=== PATIENT | female | born 1995 | race Caucasian/White ===

== ENCOUNTER 2018-07-14 18:26 | Emergency (ER) | payer BC, SELFPAY ==
--- NOTE | 2018-07-14 20:10 | ER ---
Nurse's Notes [facility] Name: Nayana Chopra Age: 23 yrs Sex: Female : 1995 Arrival Date: 07/14/2018 Time: 18:30 Bed 24 Private MD: Laurent Olivo R Diagnosis: Influenza due to certain identified influenza viruses Presentation: 07/14 18:32 Presenting complaint: Fever, cough, and sore throat x 2 days. TMAX 100. Transition of hb care: patient was not received from another setting of care. Onset of symptoms was July 13, 2018. Risk Assessment: Do you want to hurt yourself or someone else? Patient reports no desire to harm self or others. Care prior to arrival: None. 18:32 Method Of Arrival: Ambulatory hb 18:32 Acuity: FLAQUITO 4 hb 18:53 Initial Sepsis Screen: Does the patient meet any 2 criteria? No. Patient's initial ca1 sepsis screen is negative. Does the patient have a suspected source of infection? No. Patient's initial sepsis screen is negative. 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 - Social history:: Smoking status: Patient/guardian denies using tobacco. - Ebola Screening: : No symptoms or risks identified at this time. Screenin:40 Abuse screen: Denies threats or abuse. Denies injuries from another. Nutritional ca1 screening: No deficits noted. Tuberculosis screening: No symptoms or risk factors identified. Fall Risk None identified. Assessment: 18:40 General: Appears in no apparent distress. comfortable, Behavior is calm, cooperative, ca1 appropriate for age. Pain: Denies pain. Neuro: Level of Consciousness is awake, alert, obeys commands, Oriented to person, place, time, situation. Cardiovascular: Heart tones S1 S2 present Capillary refill < 3 seconds Patient's skin is warm and dry. Respiratory: Reports shortness of breath cough that is productive, Airway is patent Respiratory effort is even, unlabored, Respiratory pattern is regular, symmetrical, Breath sounds are clear bilaterally. Onset: The symptoms/episode began/occurred yesterday. GI: Abdomen is round non-distended, Bowel sounds present X 4 quads. Abd is soft and non tender X 4 quads. : No deficits noted. No signs and/or symptoms were reported regarding the genitourinary system. EENT: Throat is pink. Derm: Skin is intact, is healthy with good turgor, Skin is pink, warm \T\ dry. Musculoskeletal: Circulation, motion, and sensation intact. Capillary refill < 3 seconds. 19:53 Reassessment: Patient appears in no apparent distress at this time. Patient and/or ca1 family updated on plan of care and expected duration. Pain level reassessed. Patient is alert, oriented x 3, equal unlabored respirations, skin warm/dry/pink. Vital Signs: 18:33 BP 124 / 81; Pulse 104; Resp 20; Temp 99; Pulse Ox 97% on R/A; Pain 8/10; hb 19:53 BP 106 / 79; Pulse 103; Resp 19; Pulse Ox 97% on R/A; ca1 ED Course: 18:30 Patient arrived in ED. ds1 18:30 Laurent Olivo MD is Private Physician. ds1 18:30 Neli Negron FNP-C is [facility]. kb 18:30 Sanchez Collins MD is Attending Physician. kb 18:33 Triage completed. hb 18:34 Arm band placed on left wrist. hb 18:40 Patient has correct armband on for positive identification. Pulse ox on. NIBP on. Warm ca1 blanket given. 18:47 Zenia Lopez, HEMA is Primary Nurse. ca1 18:55 Flu Sent. rv 18:55 Strep Sent. rv 20:16 No provider procedures requiring assistance completed. Patient did not have IV access ca1 during this emergency room visit. Administered Medications: 20:15 Drug: Tamiflu 75 mg Route: PO; ca1 20:16 Follow up: Response: Medication administered at discharge. ca1 Outcome: 20:09 Discharge ordered by . kb 20:16 Discharged to home ambulatory. ca1 20:16 Condition: stable 20:16 Discharge instructions given to patient, Instructed on discharge instructions, follow up and referral plans. medication usage, Demonstrated understanding of instructions, follow-up care, medications, Prescriptions given X 1. 20:17 Patient left the ED. ca1 Signatures: Neli Negron, MOSHE-Brynn POWER PLANT INSTALLER-Cinda Jimenez ds1 Essence Barrow, RN RN hb Rajat Arechiga, RN RN rv Zenia Lopez RN RN ca1
--- NOTE | 2018-07-14 20:10 | EDPHYS ---
Physician Documentation [facility] Name: Nayana Chopra Age: 23 yrs Sex: Female : 1995 Arrival Date: 07/14/2018 Time: 18:30 Bed 24 Private MD: Laurent Olvio R ED Physician Sanchez Collins HPI: 07/14 20:05 This 23 yrs old Female presents to ER via Ambulatory with complaints of kb Fever, Sore Throat, Cough. 20:06 The patient or guardian reports cough, that is intermittent, described as moderate, kb with no sputum, flu symptoms, low-grade fever, myalgias. Onset: The symptoms/episode began/occurred 2 day(s) ago. Severity of symptoms: At their worst the symptoms were mild, moderate, in the emergency department the symptoms are unchanged. Modifying factors: The symptoms are alleviated by nothing, the symptoms are aggravated by nothing. Associated signs and symptoms: Pertinent positives: fever, rhinorrhea, sore throat, Pertinent negatives: chest pain, diarrhea, ear ache, nausea, vomiting. The patient has not experienced similar symptoms in the past. The patient has not recently seen a physician. 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 - Social history:: Smoking status: Patient/guardian denies using tobacco. - Ebola Screening: : No symptoms or risks identified at this time. ROS: 20:05 Neck: Negative for injury, pain, and swelling, Cardiovascular: Negative for chest pain, kb palpitations, and edema, Abdomen/GI: Negative for abdominal pain, nausea, vomiting, diarrhea, and constipation, Back: Negative for injury and pain, : Negative for injury, bleeding, discharge, and swelling, MS/Extremity: Negative for injury and deformity, Skin: Negative for injury, rash, and discoloration, Neuro: Negative for headache, weakness, numbness, tingling, and seizure. 20:05 Constitutional: Positive for body aches, chills, fatigue, fever, malaise, Negative for poor PO intake, weight loss. 20:05 ENT: Positive for sore throat. 20:05 Respiratory: Positive for cough, Negative for dyspnea on exertion, hemoptysis, orthopnea, pleurisy, shortness of breath, sputum production, wheezing. Exam: 20:06 Constitutional: This is a well developed, well nourished patient who is awake, alert, kb and in no acute distress. Head/Face: Normocephalic, atraumatic. ENT: Nares patent. No nasal discharge, no septal abnormalities noted. Tympanic membranes are normal and external auditory canals are clear. Oropharynx with no redness, swelling, or masses, exudates, or evidence of obstruction, uvula midline. Mucous membranes moist. Neck: Trachea midline, no thyromegaly or masses palpated, and no cervical lymphadenopathy. Supple, full range of motion without nuchal rigidity, or vertebral point tenderness. No Meningismus. Chest/axilla: Normal chest wall appearance and motion. Nontender with no deformity. No lesions are appreciated. Cardiovascular: Regular rate and rhythm with a normal S1 and S2. No gallops, murmurs, or rubs. Normal PMI, no JVD. No pulse deficits. Respiratory: Lungs have equal breath sounds bilaterally, clear to auscultation and percussion. No rales, rhonchi or wheezes noted. No increased work of breathing, no retractions or nasal flaring. Abdomen/GI: Soft, non-tender, with normal bowel sounds. No distension or tympany. No guarding or rebound. No evidence of tenderness throughout. Skin: Warm, dry with normal turgor. Normal color with no rashes, no lesions, and no evidence of cellulitis. MS/ Extremity: Pulses equal, no cyanosis. Neurovascular intact. Full, normal range of motion. Neuro: Awake and alert, GCS 15, oriented to person, place, time, and situation. Cranial nerves II-XII grossly intact. Motor strength 5/5 in all extremities. Sensory grossly intact. Cerebellar exam normal. Normal gait. Vital Signs: 18:33 BP 124 / 81; Pulse 104; Resp 20; Temp 99; Pulse Ox 97% on R/A; Pain 8/10; hb 19:53 BP 106 / 79; Pulse 103; Resp 19; Pulse Ox 97% on R/A; ca1 MDM: 18:35 Patient medically screened. kb 20:06 Data reviewed: vital signs, nurses notes. Data interpreted: Pulse oximetry: on room air kb is 97 %. Interpretation: normal. Counseling: I had a detailed discussion with the patient and/or guardian regarding: the historical points, exam findings, and any diagnostic results supporting the discharge/admit diagnosis, lab results, the need for outpatient follow up, a family practitioner, to return to the emergency department if symptoms worsen or persist or if there are any questions or concerns that arise at home. 07/14 18:35 Order name: Strep; Complete Time: 20:04 kb 07/14 18:35 Order name: Flu; Complete Time: 20:04 kb 07/14 20:04 Order name: Throat Culture EDMS Administered Medications: 20:15 Drug: Tamiflu 75 mg Route: PO; ca1 20:16 Follow up: Response: Medication administered at discharge. ca1 Disposition: 07/15 07:24 Co-signature as Attending Physician, Sanchez Collins MD I agree with the assessment and kdr plan of care. Disposition: 07/14/18 20:09 Discharged to Home. Impression: Influenza due to certain identified influenza viruses. - Condition is Stable. - Discharge Instructions: Influenza, Adult, [id number]. - Prescriptions for Tamiflu 75 mg Oral Capsule - take 1 capsule by ORAL route every 12 hours for 5 days; 10 capsule. - Medication Reconciliation Form, Thank You Letter, Antibiotic Education, Prescription Opioid Use, Work release form form. - Follow up: Emergency Department; When: As needed; Reason: Worsening of condition. Follow up: Private Physician; When: 2 - 3 days; Reason: Recheck today's complaints, Continuance of care, Re-evaluation by your physician. Signatures: Dispatcher [employer] EDMS Neli Negron, LIDIAC Sanchez Best MD MD [facility] Essence Barrow RN RN Zenia Lopez RN RN ca1 Corrections: (The following items were deleted from the chart) 07/14 20:17 20:09 07/14/2018 20:09 Discharged to Home. Impression: Influenza due to certain ca1 identified influenza viruses. Condition is Stable. Forms are Medication Reconciliation Form, Thank You Letter, Antibiotic Education, Prescription Opioid Use. Follow up: Emergency Department; When: As needed; Reason: Worsening of condition. Follow up: Private Physician; When: 2 - 3 days; Reason: Recheck today's complaints, Continuance of care, Re-evaluation by your physician. kb
[2018-07-14] MEDS ORDERED: OSELTAMIVIR 75 MG CAP ONE (20:24)
[2018-07-14 20:43] VITALS: TEMP 99; O2SAT 97
[2018-07-14 20:44] VITALS: BP 106/79
== END 2018-07-14 20:17 | disposition home or self-care (01) ==
LOC: ER 18:26
DX: J10.1 Influenza due to other identified influenza virus with other respiratory manifestations (principal)
CPT/HCPCS: 87070; 87081; 87804; 99284

== ENCOUNTER 2019-04-18 15:23 | Emergency (ER) | payer BC ==
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
[2019-04-18 17:05] VITALS: BP 144/83; TEMP 98.2; O2SAT 99
== END 2019-04-18 16:38 | disposition home or self-care (01) ==
LOC: ER 15:23
DX: M62.830 Muscle spasm of back (principal); V49.50XA Passenger injured in collision with unspecified motor vehicles in traffic accident, initial encounter
CPT/HCPCS: 99284

== ENCOUNTER 2019-07-13 04:13 | Emergency (ER) | payer BC ==
[2019-07-13] MEDS ORDERED: AMOX/K CLAV 875 MG TAB ONE (04:56)
--- NOTE | 2019-07-13 05:24 | EDPHYS ---
Physician Documentation [facility] Name: Nayana Chopra Age: 24 yrs Sex: Female : 1995 Arrival Date: 07/13/2019 Time: 04:14 Bed 5 Private MD: ED Physician Julien Sibley HPI: 07/12 04:48 This 24 yrs old Female presents to ER via Ambulatory with complaints of cee Cough, Sore Throat, 12 Wks Preg. 04:48 The patient or guardian reports cough, that is intermittent. Onset: The cee symptoms/episode began/occurred 3 day(s) ago. Severity of symptoms: At their worst the symptoms were mild, in the emergency department the symptoms are unchanged. Modifying factors: The symptoms are alleviated by nothing, the symptoms are aggravated by nothing. Associated signs and symptoms: The patient has no apparent associated signs or symptoms. 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 - Social history:: Smoking status: Patient denies any tobacco usage or history of. - Family history:: not pertinent. ROS: 04:48 Constitutional: Negative for fever, chills, and weight loss, Eyes: Negative for injury, cee pain, redness, and discharge, ENT: Negative for injury, pain, and discharge, Neck: Negative for injury, pain, and swelling, Cardiovascular: Negative for chest pain, palpitations, and edema, Abdomen/GI: Negative for abdominal pain, nausea, vomiting, diarrhea, and constipation, Back: Negative for injury and pain, : Negative for injury, bleeding, discharge, and swelling, MS/Extremity: Negative for injury and deformity, Skin: Negative for injury, rash, and discoloration, Neuro: Negative for headache, weakness, numbness, tingling, and seizure, Psych: Negative for depression, anxiety, suicide ideation, homicidal ideation, and hallucinations, Allergy/Immunology: Negative for hives, rash, and allergies, Endocrine: Negative for neck swelling, polydipsia, polyuria, polyphagia, and marked weight changes, Hematologic/Lymphatic: Negative for swollen nodes, abnormal bleeding, and unusual bruising. 04:48 Respiratory: Positive for cough, with green sputum. Exam: 04:48 Constitutional: This is a well developed, well nourished patient who is awake, alert, cee and in no acute distress. Head/Face: Normocephalic, atraumatic. Eyes: Pupils equal round and reactive to light, extra-ocular motions intact. Lids and lashes normal. Conjunctiva and sclera are non-icteric and not injected. Cornea within normal limits. Periorbital areas with no swelling, redness, or edema. ENT: Nares patent. No nasal discharge, no septal abnormalities noted. Tympanic membranes are normal and external auditory canals are clear. Oropharynx with no redness, swelling, or masses, exudates, or evidence of obstruction, uvula midline. Mucous membranes moist. Neck: Trachea midline, no thyromegaly or masses palpated, and no cervical lymphadenopathy. Supple, full range of motion without nuchal rigidity, or vertebral point tenderness. No Meningismus. Chest/axilla: Normal chest wall appearance and motion. Nontender with no deformity. No lesions are appreciated. Cardiovascular: Regular rate and rhythm with a normal S1 and S2. No gallops, murmurs, or rubs. Normal PMI, no JVD. No pulse deficits. Abdomen/GI: Soft, non-tender, with normal bowel sounds. No distension or tympany. No guarding or rebound. No evidence of tenderness throughout. Back: No spinal tenderness. No costovertebral tenderness. Full range of motion. Skin: Warm, dry with normal turgor. Normal color with no rashes, no lesions, and no evidence of cellulitis. MS/ Extremity: Pulses equal, no cyanosis. Neurovascular intact. Full, normal range of motion. Neuro: Awake and alert, GCS 15, oriented to person, place, time, and situation. Cranial nerves II-XII grossly intact. Motor strength 5/5 in all extremities. Sensory grossly intact. Cerebellar exam normal. Normal gait. Psych: Awake, alert, with orientation to person, place and time. Behavior, mood, and affect are within normal limits. 04:48 Respiratory: mild respiratory distress is noted, Respirations: no acute changes, Breath sounds: rhonchi, that are mild. Vital Signs: 04:35 BP 116 / 90; Pulse 85; Resp 18; Temp 98.9; Pulse Ox 100% ; Weight 102.97 kg; Height 5 rv ft. 10 in. (177.80 cm); 05:38 BP 110 / 77; Pulse 86; Resp 17; Temp 99; Pulse Ox 100% on R/A; rv 04:35 Body Mass Index 32.57 (102.97 kg, 177.80 cm) rv MDM: 04:19 Patient medically screened. [facility] 04:48 Data reviewed: vital signs, nurses notes, lab test result(s). [facility] 07/12 04:35 Order name: Strep rv 07/12 04:35 Order name: Group A Streptococcus Rapid Sc; Complete Time: 05:27 EDMS 07/12 04:47 Order name: Flu; Complete Time: 05:27 [facility] 07/12 05:33 Order name: Throat Culture EDMS Administered Medications: 05:37 Drug: Augmentin 875 mg Route: PO; rv 05:38 Follow up: Response: Medication administered at discharge. rv Disposition: 07/13/19 05:22 Discharged to Home. Impression: Bronchitis, not specified as acute or chronic, Acute pharyngitis, related conditions, unspecified, first trimester. - Condition is Stable. - Discharge Instructions: Acute Bronchitis, Adult, Pharyngitis, Upper Respiratory Infection, Adult, First Trimester of , Wbiv-lv-Zgbl, Pharyngitis, Idgv-vg-Vcoa, First Trimester of , Cough, Adult, Cjyj-wa-Qbcc, Cough, Adult, Sore Throat, Xofo-rj-Sbth. - Prescriptions for Augmentin 875- 125 mg Oral Tablet - take 1 tablet by ORAL route every 12 hours for 10 days; 20 tablet. Benadryl 25 mg Oral Capsule - take 1 capsule by ORAL route every 6 hours As needed; 30 tablet. Vitamin 27- 0.8 mg Oral Tablet - take 1 tablet by ORAL route once daily; 30 tablet. - Medication Reconciliation Form, Thank You Letter, Antibiotic Education, Prescription Opioid Use form. - Follow up: Private Physician; When: 2 - 3 days; Reason: Recheck today's complaints, Re-evaluation by your physician. - Problem is new. - Symptoms have improved. Signatures: Dispatcher [employer] EDJulien Diallo MD MD cha Vicente, Ronaldo RN RN rv Corrections: (The following items were deleted from the chart) 05:38 04:47 FHT's ordered. cee rv 05:39 05:22 07/13/2019 05:22 Discharged to Home. Impression: Bronchitis, not specified as rv acute or chronic; Acute pharyngitis; related conditions, unspecified, first trimester. Condition is Stable. Discharge Instructions: Acute Bronchitis, Adult, Pharyngitis, Upper Respiratory Infection, Adult, First Trimester of , Duvo-bd-Lcyw, Pharyngitis, Wtwt-am-Ypvh, First Trimester of , Cough, Adult, Antj-eo-Hydk, Cough, Adult, Sore Throat, Yowt-dp-Tizp. Prescriptions for Augmentin 875-125 mg Oral Tablet - take 1 tablet by ORAL route every 12 hours for 10 days; 20 tablet, Benadryl 25 mg Oral Capsule - take 1 capsule by ORAL route every 6 hours As needed; 30 tablet, Vitamin 27-0.8 mg Oral Tablet - take 1 tablet by ORAL route once daily; 30 tablet. and Forms are Medication Reconciliation Form, Thank You Letter, Antibiotic Education, Prescription Opioid Use. Follow up: Private Physician; When: 2 - 3 days; Reason: Recheck today's complaints, Re-evaluation by your physician. Problem is new. Symptoms have improved. [facility]
--- NOTE | 2019-07-13 05:24 | ER ---
Nurse's Notes [facility] Name: Nayana Chopra Age: 24 yrs Sex: Female : 1995 Arrival Date: 07/13/2019 Time: 04:14 Bed 5 Private MD: Diagnosis: Bronchitis, not specified as acute or chronic;Acute pharyngitis; related conditions, unspecified, first trimester Presentation: 07/12 04:35 Chief complaint: Patient states: MY DAUGHTER HAD SORE THROAT LAST WEEK AND TEA BLENDER rv GAVE HER ANTIBIOTICS AND STEROIDS. COUGH AND SORE THROAT STARTED 3 DAYS AGO. DENIES FEVER. Coronavirus screen: Patient reports a subjective fever or greater than 100.4F, or cough, or shortness of breath, or difficulty breathing. Surgical mask placed on patient. Patient moved to private room, placed in contact and droplet isolation with eye protection until further assessment. Patient denies travel on a cruise ship or to a country the [facility] currently lists as an affected area. Patient denies contact with known and/or suspected case of COVID-19. Ebola Screen: No symptoms or risks identified at this time. Initial Sepsis Screen: Does the patient meet any 2 criteria? No. Patient's initial sepsis screen is negative. Does the patient have a suspected source of infection? No. Patient's initial sepsis screen is negative. Risk Assessment: Do you want to hurt yourself or someone else? Patient reports no desire to harm self or others. Onset of symptoms was July 11, 2019 at 08:00. 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 - Social history:: Smoking status: Patient denies any tobacco usage or history of. - Family history:: not pertinent. Screenin:39 Abuse screen: Denies threats or abuse. Denies injuries from another. Nutritional rv screening: No deficits noted. Tuberculosis screening: No symptoms or risk factors identified. Fall Risk None identified. Assessment: 04:38 General: Appears in no apparent distress. comfortable, Behavior is calm, cooperative. rv Pain: Denies pain. Neuro: Level of Consciousness is awake, alert, obeys commands, Oriented to person, place, time, situation. Cardiovascular: Patient's skin is warm and dry. Respiratory: Airway is patent Respiratory effort is even, unlabored, Breath sounds are clear bilaterally. EENT: Throat is reddened. Derm: Skin is healthy with good turgor. Vital Signs: 04:35 BP 116 / 90; Pulse 85; Resp 18; Temp 98.9; Pulse Ox 100% ; Weight 102.97 kg; Height 5 rv ft. 10 in. (177.80 cm); 05:38 BP 110 / 77; Pulse 86; Resp 17; Temp 99; Pulse Ox 100% on R/A; rv 04:35 Body Mass Index 32.57 (102.97 kg, 177.80 cm) rv ED Course: 04:14 Patient arrived in ED. ds1 04:18 Rajat Arechiga, RN is Primary Nurse. rv 04:19 Julien Sibley MD is Attending Physician. cee 04:38 Triage completed. rv 04:38 Arm band placed on Patient placed in the treatment room, on a stretcher, Patient rv notified of wait time. 04:39 Patient has correct armband on for positive identification. Bed in low position. Call rv light in reach. Pulse ox on. NIBP on. 04:39 No provider procedures requiring assistance completed. Patient did not have IV access rv during this emergency room visit. 04:49 Flu and/or RSV swab sent to lab. Strep swab sent to lab. rr5 Administered Medications: 05:37 Drug: Augmentin 875 mg Route: PO; rv 05:38 Follow up: Response: Medication administered at discharge. rv Outcome: 05:22 Discharge ordered by . cee 05:39 Discharged to home ambulatory. rv 05:39 Condition: good 05:39 Discharge instructions given to patient, Instructed on discharge instructions, follow up and referral plans. medication usage, Demonstrated understanding of instructions, follow-up care, medications, Prescriptions given X 3. 05:39 Patient left the ED. rv Signatures: Julien Sibley MD MD cha Sanford, Demi ds1 Rajat Arechiga, HEMA RN rv Jin Kitchen RN RN rr5
[2019-07-13 10:00] VITALS: O2SAT 100
[2019-07-13 10:02] VITALS: BP 110/77; TEMP 99
== END 2019-07-13 05:39 | disposition home or self-care (01) ==
LOC: ER 04:13
DX: O99.511 Diseases of the respiratory system complicating pregnancy, first trimester (principal); J40 Bronchitis, not specified as acute or chronic; Z3A.12 12 weeks gestation of pregnancy
CPT/HCPCS: 87070; 87081; 87804; 99284

== ENCOUNTER 2019-08-14 12:52 | Emergency (ER) | payer BC, OTHER ==
[2019-08-14 13:26] LABS: Absolute Lymphocytes (CBC) 2.2 K/uL (0.7-4.9); Basophils % 0.3 % (0-1.3); Hematocrit 36.4 % (36.0-45.0); Lymphocytes % 17.6 % (15.3-44.8); MPV 7.6 fL (7.6-11.3); RBC Red Blood Cell Count 3.98 M/uL (3.86-4.86)
[2019-08-14 14:00] LABS: BUN Blood Urea Nitrogen 5 mg/dL (7-18); Bicarbonate 21 mmol/L (21-32); Glucose Level 93 mg/dL (74-106); HCG, Quantitative 11024 mIU/mL (1-3); Potassium 3.4 mmol/L (3.5-5.1); Sodium Level 134 mmol/L (136-145)
--- NOTE | 2019-08-14 14:21 | RAD REPORT ---
EXAM DESCRIPTION: US - OB Limited - 08/14/2019 1:56 pm CLINICAL HISTORY: syncope/spotting Fall, trauma, spotting COMPARISON: OBSTETRICAL COMPLETE dated 02/19/2015 FINDINGS: A limited examination was requested from the emergency room. A single variable presenting gestation is identified. Heart rate normal. The placenta is anterior in location without placental abruption or previa. Subjectively, amniotic fl uid volume is normal. IMPRESSION: No acute abnormality detected on limited examination.
[2019-08-14] MEDS ORDERED: NA CHLORIDE 0.9% 1,000 ML ONE (14:47)
--- NOTE | 2019-08-14 16:01 | EDPHYS ---
Physician Documentation [facility] Name: Nayana Cohpra Age: 24 yrs Sex: Female : 1995 Arrival Date: 08/14/2019 Time: 12:58 Bed 5 Private MD: ED Physician Piyush Saldana HPI: 08/13 13:16 This 24 yrs old Female presents to ER via Ambulatory with complaints of Near snw Syncope. 13:16 The patient has experienced syncope, collapsed. Onset: The symptoms/episode snw began/occurred suddenly, and became persistent. Duration: The patient has had multiple episodes, that last an unknown period of time. Context: the episode(s) was witnessed, by family, occurred at home, occurred while the patient was getting up from bed. Associated injury: The patient did not suffer any apparent associated injury. Current symptoms: feels "heavy". The patient has been recently seen by a physician: with similar presenting complaints, lab tests were done, no results at this time. BUILDING ADMIN: 13:05 2, Full Term 1, Premature 0, 0, Living 1 sv Historical: - Allergies: 13:05 No Known Drug Allergies; sv - Home Meds: 13:09 None [Active]; jl7 - PMHx: 13:05 None; sv - PSHx: 13:05 None; sv - Immunization history:: Adult Immunizations. - Social history:: Smoking status: . ROS: 13:15 Constitutional: Negative for fever, chills, and weight loss, Eyes: Negative for injury, snw pain, redness, and discharge, ENT: Negative for injury, pain, and discharge, Neck: Negative for injury, pain, and swelling, Cardiovascular: Negative for chest pain, palpitations, and edema, Respiratory: Negative for shortness of breath, cough, wheezing, and pleuritic chest pain, Abdomen/GI: Negative for abdominal pain, nausea, vomiting, diarrhea, and constipation, Back: Negative for injury and pain, : Negative for injury, discharge, and swelling, spotting throughout 16 week MS/Extremity: Negative for injury and deformity, Skin: Negative for injury, rash, and discoloration, Psych: Negative for depression, anxiety, suicide ideation, homicidal ideation, and hallucinations. 13:15 Neuro: Positive for syncope. Exam: 13:14 Constitutional: This is a well developed, well nourished patient who is awake, alert, snw and in no acute distress. Head/Face: Normocephalic, atraumatic. 13:14 ENT: Nares patent. No nasal discharge, no septal abnormalities noted. Tympanic membranes are normal and external auditory canals are clear. Oropharynx with no redness, swelling, or masses, exudates, or evidence of obstruction, uvula midline. Mucous membranes moist. Neck: Trachea midline, no thyromegaly or masses palpated, and no cervical lymphadenopathy. Supple, full range of motion without nuchal rigidity, or vertebral point tenderness. No Meningismus. Chest/axilla: Normal chest wall appearance and motion. Nontender with no deformity. No lesions are appreciated. Cardiovascular: Regular rate and rhythm with a normal S1 and S2. No gallops, murmurs, or rubs. Normal PMI, no JVD. No pulse deficits. Respiratory: Lungs have equal breath sounds bilaterally, clear to auscultation and percussion. No rales, rhonchi or wheezes noted. No increased work of breathing, no retractions or nasal flaring. Abdomen/GI: Soft, non-tender, with normal bowel sounds. No distension or tympany. No guarding or rebound. No evidence of tenderness throughout. Back: No spinal tenderness. No costovertebral tenderness. Full range of motion. MS/ Extremity: Pulses equal, no cyanosis. Neurovascular intact. Full, normal range of motion. Neuro: Awake and alert, GCS 15, oriented to person, place, time, and situation. Cranial nerves II-XII grossly intact. Motor strength 5/5 in all extremities. Sensory grossly intact. Cerebellar exam normal. Normal gait. Psych: Awake, alert, with orientation to person, place and time. Behavior, mood, and affect are within normal limits. 13:14 Eyes: Periorbital structures: appear normal, Pupils: no acute changes, Conjunctiva: pale, bilaterally. 13:14 Skin: Appearance: Color: pale, Moisture: normal moisture, petechiae, not noted. Vital Signs: 13:06 BP 123 / 90; Pulse 74; Resp 18; Temp 97.5; Pulse Ox 97% ; sv 14:36 BP 109 / 69; Pulse 84; Resp 16; Pulse Ox 98% ; sv 15:51 BP 112 / 68 LA Supine (auto/); Pulse 70; sv 15:53 BP 119 / 81 Sitting (auto/); Pulse 89; sv 15:55 BP 122 / 75 LA Standing (auto/); Pulse 74; sv MDM: 13:04 Patient medically screened. snw 16:07 Data reviewed: vital signs, nurses notes. Data interpreted: Pulse oximetry: on room air snw is 98 %. Interpretation: acceptable. Counseling: I had a detailed discussion with the patient and/or guardian regarding: the historical points, exam findings, and any diagnostic results supporting the discharge/admit diagnosis, lab results, radiology results, the need for outpatient follow up, to return to the emergency department if symptoms worsen or persist or if there are any questions or concerns that arise at home. Response to treatment: the patient's symptoms have mildly improved after treatment, the patient's symptoms have markedly improved after treatment. Special discussion: Based on the history and exam findings, there is no indication for further emergent testing or inpatient evaluation. I discussed with the patient/guardian the need to see the OB Gyne specialist for further evaluation of the symptoms. 08/13 13:04 Order name: Quantitative Hcg; Complete Time: 14:02 snw 08/13 13:04 Order name: Basic Metabolic Panel; Complete Time: 14:02 snw 08/13 13:04 Order name: CBC with Diff; Complete Time: 13:32 snw 08/13 13:15 Order name: Glucose, Ancillary Testing; Complete Time: 13:23 EDMS 08/13 13:04 Order name: IV Saline Lock; Complete Time: 13:21 snw 08/13 13:04 Order name: Labs collected and sent; Complete Time: 13:21 snw 08/13 13:04 Order name: NPO; Complete Time: 13:21 snw 08/13 13:04 Order name: FSBS; Complete Time: 13:08 snw 08/13 13:07 Order name: US OB Limited; Complete Time: 14:25 snw 08/13 15:58 Order name: Diet Regular; Complete Time: 15:58 em1 08/13 14:26 Order name: Misc. Order: please change IVF rate to bolus; Complete Time: 14:43 snw 08/13 15:48 Order name: Orthostatics; Complete Time: 15:58 snw Administered Medications: 14:43 Drug: NS 0.9% 1000 ml Route: IV; Rate: 1000 bolus; Site: right antecubital; aa5 15:45 Follow up: Response: No adverse reaction; IV Status: Completed infusion; IV Intake: sv 1000ml Disposition: 18:25 Co-signature as Attending Physician, Piyush Saldana MD. rn Disposition: 08/14/19 16:00 Discharged to Home. Impression: 16 weeks gestation of , Syncope and collapse, Volume depletion. - Condition is Stable. - Discharge Instructions: Dehydration, Adult, Near-Syncope, and Anemia, Second Trimester of , Xnso-is-Chps, Rehydration, Adult. - Medication Reconciliation Form, Thank You Letter, Antibiotic Education, Prescription Opioid Use form. - Follow up: Emergency Department; When: As needed; Reason: Worsening of condition. Follow up: Private Physician; When: 1 - 2 days; Reason: Recheck today's complaints, Continuance of care, Re-evaluation by your physician. - Notes: Please change positions slowly. Signatures: Dispatcher [employer] EDMD Myriam Quiroz RN RN sv Therrien, Shelly, BOAT WORKER-C BOAT WORKER-Csnw Piyush Saldana MD MD rn Calderon, Audri, RN RN aa5 Alexei Huang RN RN jl7 Corrections: (The following items were deleted from the chart) 16:33 13:04 ABO/RH TYPING+BB.LAB.BRZ ordered. EDMD EDMS 16:33 13:04 TYPE AND SCREEN+BB.LAB.BRZ ordered. [facility] EDMD 16:35 16:00 08/14/2019 16:00 Discharged to Home. Impression: 16 weeks gestation of ; sv Syncope and collapse; Volume depletion. Condition is Stable. Forms are Medication Reconciliation Form, Thank You Letter, Antibiotic Education, Prescription Opioid Use. Follow up: Emergency Department; When: As needed; Reason: Worsening of condition. Follow up: Private Physician; When: 1 - 2 days; Reason: Recheck today's complaints, Continuance of care, Re-evaluation by your physician. snw
--- NOTE | 2019-08-14 16:01 | ER ---
Nurse's Notes [facility] Name: Nayana Chopra Age: 24 yrs Sex: Female : 1995 Arrival Date: 08/14/2019 Time: 12:58 Bed 5 Private MD: Diagnosis: 16 weeks gestation of ;Syncope and collapse;Volume depletion Presentation: 08/13 13:03 Chief complaint: Patient states: Woke up at 1100 this morning and was dizzy and jl7 nauseous, went to the restroom to vomit. Dizziness increased and pt reports "I fell back onto the rug from my knees and my head hit the rug." Pt denies LOC, reports "seeing stars", reports "My body feels heavy.". Initial Sepsis Screen: Does the patient meet any 2 criteria? No. Patient's initial sepsis screen is negative. Does the patient have a suspected source of infection? No. Patient's initial sepsis screen is negative. Risk Assessment: Do you want to hurt yourself or someone else? Patient reports no desire to harm self or others. Onset of symptoms was August 14, 2019 at 11:00. Care prior to arrival: None. 13:03 Method Of Arrival: Ambulatory jl7 13:03 Acuity: FLAQUITO 2 jl7 13:03 Note Pt is about 5 months . sv 13:05 Coronavirus screen: Proceed with normal triage. Patient denies a cough. Patient denies sv shortness of breath or difficulty breathing. Patient denies measured and/or subjective temperature greater than 100.4F prior to today's visit. Patient denies travel on a cruise ship or to a country the [facility] currently lists as an affected area. Patient denies contact with known and/or suspected case of COVID-19. Ebola Screen: No symptoms or risks identified at this time. Onset of symptoms was August 13, 2019. Triage Assessment: 13:03 General: Appears in no apparent distress. uncomfortable, Behavior is cooperative, jl7 appropriate for age, anxious, drowsy. Pain: Denies pain. Neuro: Level of Consciousness is awake, alert, obeys commands, Oriented to person, place, time, situation, Weakness Speech is normal, Facial symmetry appears normal, Pupils are PERRLA, Reports dizziness, weakness. Cardiovascular: Patient's skin is warm and dry. Respiratory: Airway is patent Respiratory effort is even, unlabored, Respiratory pattern is regular, symmetrical. GI: Reports nausea, vomiting, Patient currently denies diarrhea. Derm: Skin is pink, warm \\T\\ dry. [employer]: 13:05 2, Full Term 1, Premature 0, 0, Living 1 sv Historical: - Allergies: 13:05 No Known Drug Allergies; sv - Home Meds: 13:09 None [Active]; jl7 - PMHx: 13:05 None; sv - PSHx: 13:05 None; sv - Immunization history:: Adult Immunizations. - Social history:: Smoking status: . Screenin:04 Abuse screen: Denies threats or abuse. Denies injuries from another. Nutritional sv screening: No deficits noted. Tuberculosis screening: No symptoms or risk factors identified. Fall Risk None identified. Assessment: 14:00 Reassessment: Patient appears in no apparent distress at this time. No changes from sv previously documented assessment. Patient and/or family updated on plan of care and expected duration. Pain level reassessed. Patient is alert, oriented x 3, equal unlabored respirations, skin warm/dry/pink. 14:43 Reassessment: Patient appears in no apparent distress at this time. No changes from sv previously documented assessment. Patient and/or family updated on plan of care and expected duration. Pain level reassessed. Patient is alert, oriented x 3, equal unlabored respirations, skin warm/dry/pink. 16:06 Reassessment: Patient appears in no apparent distress at this time. Patient and/or sv family updated on plan of care and expected duration. Pain level reassessed. Patient is alert, oriented x 3, equal unlabored respirations, skin warm/dry/pink. Reports dizziness has improved after the IVF given. Patient states feeling better. Patient states symptoms have improved. 16:34 Reassessment: Patient appears in no apparent distress at this time. Patient and/or sv family updated on plan of care and expected duration. Pain level reassessed. Patient is alert, oriented x 3, equal unlabored respirations, skin warm/dry/pink. Patient states feeling better. Patient states symptoms have improved. Vital Signs: 13:06 BP 123 / 90; Pulse 74; Resp 18; Temp 97.5; Pulse Ox 97% ; sv 14:36 BP 109 / 69; Pulse 84; Resp 16; Pulse Ox 98% ; sv 15:51 BP 112 / 68 LA Supine (auto/); Pulse 70; sv 15:53 BP 119 / 81 Sitting (auto/); Pulse 89; sv 15:55 BP 122 / 75 LA Standing (auto/); Pulse 74; sv Vitals: 13:03 Heart Tones 138. sv ED Course: 12:58 Patient arrived in ED. em1 13:01 Malu Luna F[facility]-C [facility]. snw 13:01 Piyush Saldana MD is Attending Physician. snw 13:03 Myriam Quiroz, HEMA is Primary Nurse. sv 13:04 Patient has correct armband on for positive identification. Bed in low position. Call sv light in reach. Side rails up X2. Pulse ox on. NIBP on. Door closed. Head of bed elevated. 13:06 Arm band placed on. sv 13:07 Triage completed. jl7 13:15 Inserted saline lock: 20 gauge in right antecubital area, using aseptic technique. sv Blood collected. Flushed right antecubital with 2 ml normal saline. 13:49 US OB Limited In Process Unspecified. EDMS 14:36 Awaiting radiology results. sv 15:08 Awaiting disposition, Awaiting re-evaluation by ER provider. sv 16:34 No provider procedures requiring assistance completed. IV discontinued, intact, sv bleeding controlled, No redness/swelling at site. Pressure dressing applied. Administered Medications: 14:43 Drug: NS 0.9% 1000 ml Route: IV; Rate: 1000 bolus; Site: right antecubital; aa5 15:45 Follow up: Response: No adverse reaction; IV Status: Completed infusion; IV Intake: sv 1000ml Intake: 15:45 IV: 1000ml; Total: 1000ml. sv Outcome: 16:00 Discharge ordered by . snw 16:34 Discharged to home via wheelchair. sv 16:34 Condition: stable 16:34 Discharge instructions given to patient, Instructed on discharge instructions, follow up and referral plans. Demonstrated understanding of instructions, follow-up care. 16:35 Patient left the ED. sv Signatures: Dispatcher [employer] EDMS Myriam Quiroz, HEMA GARRIDO sv Malu Luna FNP-C FNP-Son Lorenzo em1 Francisca Soto RN RN aa5 Alexei Huang RN RN jl7 Corrections: (The following items were deleted from the chart) 14:43 14:43 NS 0.9% 1000 ml IV at 125 ml/hr in right antecubital ki martin5
[2019-08-14 16:40] VITALS: TEMP 97.5
[2019-08-14 16:41] VITALS: O2SAT 98
[2019-08-14 16:44] VITALS: BP 122/75
== END 2019-08-14 16:35 | disposition home or self-care (01) ==
LOC: ER 12:52
DX: O99.282 Endocrine, nutritional and metabolic diseases complicating pregnancy, second trimester (principal); E86.9 Volume depletion, unspecified; R55 Syncope and collapse; Z3A.16 16 weeks gestation of pregnancy
CPT/HCPCS: 85025; 80048; 36415; 82947; 84702; 76815; 96360; 99284; J7030

== ENCOUNTER 2020-02-03 06:38 | Emergency (ER) | payer OTHER ==
--- OUTSIDE RECORDS SUMMARY | 2020-02-03 06:40 | XMS REPORT | Continuity of Care Document ---
:1995 Author Organization [facility] t Address [address] [place] [address] Care Team Providers Name Role Phone Unavailable Unavailable Unavailable Payers Payer Name Policy Type Policy Number Effective Date Expiration Date S ource Problems This patient has no known problems. Allergies, Adverse Reactions, Alerts Allergy Allergy Status Severity Reaction(s) Onset Inactive Treating Comm ents Source Name Type Date Date Clinician No Known DA Active U 2019-04 [facility] [place] Medications This patient has no known medications. Procedures This patient has no known procedures. Results Test Description Test Time Test Comments Results Result Comments Source HGB HCT 2020-01-20 13:15:00 Test Item Value Reference Range Interpretation Comme nts HEMOGLOBIN (test code = HGB) 11.4 g/dL 10.7-13.9 N HEMATOCRIT (test code = HCT) 34.5 % 32.1-42.1 N AG HEPATITIS B [id number] 14:34:00 Test Item Value Reference Range Interpretation Comments AG HEPATITIS B SURFACE (test code NONREACTIVE NONREACTIVE = HBSAG) IS CONSENT FORM SIGNED FOR HIV TESTING? YAB HEPATITIS C [id number] 14:34:00 Test Item Value Reference Range Interpretation Comments AB HEPATITIS C (test code = NONREACTIVE NONREACTIVE HCVAB) SIGNAL TO CUTOFF (test code = 0.16 <0.80 N CUTOFF) IS CONSENT FORM SIGNED FOR HIV TESTING? YAB [id number] 14:34:00 Test Item Value Reference Range Interpretation Comments AB TREPONEMA (test code = TREPAB) NONREACTIVE NONREACTIVE IS CONSENT FORM SIGNED FOR HIV TESTING? YAB HIV 1 14:34:00 Test Item Value Reference Range Interpretation Comments AB HIV 1 2 (test code = [id number]) NONREACTIVE IS CONSENT FORM SIGNED FOR HIV TESTING? YAG HEPATITIS B [id number] 14:34:00 Test Item Value Reference Range Interpretation Comments AG HEPATITIS B SURFACE (test code NONREACTIVE NONREACTIVE = HBSAG) IS CONSENT FORM SIGNED FOR HIV TESTING? YAB HEPATITIS C [id number] 14:34:00 Test Item Value Reference Range Interpretation Comments AB HEPATITIS C (test code = NONREACTIVE NONREACTIVE HCVAB) SIGNAL TO CUTOFF (test code = 0.16 <0.80 N CUTOFF) IS CONSENT FORM SIGNED FOR HIV TESTING? YAB [id number] 14:34:00 Test Item Value Reference Range Interpretation Comments AB TREPONEMA (test code = TREPAB) NONREACTIVE NONREACTIVE IS CONSENT FORM SIGNED FOR HIV TESTING? YAB HIV 1 14:34:00 Test Item Value Reference Range Interpretation Comments AB HIV 1 2 (test NONREACTIVE NONREACTIVE Done by Jakob harrison [employer] code = [id number]) 4th Gen HIV Ag/Ab Combo Screen IS CONSENT FORM SIGNED FOR HIV TESTING? YAG HEPATITIS B [id number] 14:11:00 Test Item Value Reference Range Interpretation Comments AG HEPATITIS B SURFACE (test code NONREACTIVE NONREACTIVE = HBSAG) IS CONSENT FORM SIGNED FOR HIV TESTING? CJ HEPATITIS C [id number] 14:11:00 Test Item Value Reference Range Interpretation Comments AB HEPATITIS C (test code = HCVAB) NONREACTIVE SIGNAL TO CUTOFF (test code = CUTOFF) <0.80 IS CONSENT FORM SIGNED FOR HIV TESTING? YAB [id number] 14:11:00 Test Item Value Reference Range Interpretation Comments AB TREPONEMA (test code = TREPAB) NONREACTIVE NONREACTIVE IS CONSENT FORM SIGNED FOR HIV TESTING? YAB HIV 1 14:11:00 Test Item Value Reference Range Interpretation Comments AB HIV 1 2 (test code = [id number]) NONREACTIVE IS CONSENT FORM SIGNED FOR HIV TESTING? YCBC W/AUTO [id number] 13:58:00 Test Item Value Reference Range Interpretation Comments WHITE BLOOD CELL (test code = WBC) 13.5 K/mm3 6.6-12.1 H RED BLOOD CELL (test code = RBC) 4.04 M/mm3 3.45-5.01 N HEMOGLOBIN (test code = HGB) 12.6 g/dL 10.7-13.9 N HEMATOCRIT (test code = HCT) 38.4 % 32.1-42.1 N MEAN CELL VOLUME (test code = MCV) 95 fL 84.1-94.8 H MEAN CELL HGB (test code = MCH) 31.2 pg 27-35 N MEAN CELL HGB CONCETRATION (test 32.8 gm/dL 32.2-34.1 N code = MCHC) RED CELL DISTRIBUTION WIDTH (test 13.8 % 12.4-16.5 N code = RDW) PLATELET COUNT (test code = PLT) 296 K/mm3 133-385 N MEAN PLATELET VOLUME (test code = 9.8 fl 9.1-12.7 N MPV) NEUTROPHIL % (test code = NT%) 79.8 % 56.5-79.4 H LYMPHOCYTE % (test code = LY%) 12.5 % 14.3-34.3 L MONOCYTE % (test code = MO%) 5.9 % 5.1-10.4 N EOSINOPHIL % (test code = EO%) 0.9 % 0.1-3.0 N BASOPHIL % (test code = BA%) 0.3 % 0.1-1.0 N NEUTROPHIL # (test code = NT#) 10.7 K/mm3 LYMPHOCYTE # (test code = LY#) 1.7 K/mm3 MONOCYTE # (test code = MO#) 0.8 K/mm3 EOSINOPHIL # (test code = EO#) 0.12 K/mm3 BASOPHIL # (test code = BA#) 0.0 K/mm3 RBC MORPHOLOGY REQUIRED (test code NORMAL NORMAL = RBCM) PLATELET MORPHOLOGY REQUIRED (test NORMAL NORMAL code = PLTMR) COVID 19 Asymptomatic IH [id number] 13:08:00 Test Item Value Reference Range Interpretation Comments COVID 19 NEGATIVE NEGATIVE This test has b een Asymptomatic IH AG authorize d only for the (test code = detection ofpro teins from COVNONPUIAG) SARS-CoV-2, not for any other viruses orpathogens. N egative results should be treated as presumptive andconfirmed wi th a molecular assay , if necessary for patientmanageme nt. Negative result s do not rule out COVID- 19 andshould not b e used as the sole basis for treatment orpat ient management deci sions, including infec tion controldecision s. Negative result s should be considered i n thecontext of a patient's recent exposure s, history and thepresence of clinical signs and symptoms consis tent withCOVID-19. T his test has not been FD A cleared or approved; th e test hasbeen authori johanny by FDA under an Emerge ncy Use Authorization(E UA) for use by laborato dudley certified under the CLIA thatmeet the re quirements to perform mode rate, high or waivedcomple xity tests. This pelon t is authorized for use at thePoint of Car e (POC), i.e., in patien t care settingsoperati ng under a CLIA Certificat e of Waiver, Certifi shabana ofCompliance, o r Certificate of Accreditation. This test is only authori zed for the duration of thedeclaration that circumstances e xist justifying theauthorizatio n of emergency use o f in vitro diagnostic test sfor detection and/o r diagnosis of CO VID-19 under Ovwrreo24 4(b)(1) of the Act, 21 U.S .C. 360bbb-3(b)(1), unless theauthorizatio n is terminated or r evoked sooner.
--- NOTE | 2020-02-03 07:10 | ER ---
Nurse's Notes [facility] Name: Nayana Chopra Age: 24 yrs Sex: Female : 1995 Arrival Date: 02/03/2020 Time: 06:40 Bed 8 Private MD: Laurent Olivo R Diagnosis: Acute upper respiratory infection, unspecified;Fever, unspecified;Vomiting;Otitis media, unspecified, left ear Presentation: 02/02 06:41 Chief complaint: Patient states: Left ear pain, headache that began this morning, sg vomiting x1 BOBBIN DOFFER, pt reports fever and chills at home with TMAX of 102 just BOBBIN DOFFER. Coronavirus screen: chills, fever, headache, Client presents with at least one sign or symptom that may indicate coronavirus-19. Provider contacted for isolation considerations. Ebola Screen: Patient negative for fever greater than or equal to 101.5 degrees Fahrenheit, and additional compatible Ebola Virus Disease symptoms Patient denies exposure to infectious person. Patient denies travel to an Ebola-affected area in the 21 days before illness onset. No symptoms or risks identified at this time. Initial Sepsis Screen: Does the patient meet any 2 criteria? No. Patient's initial sepsis screen is negative. Does the patient have a suspected source of infection? No. Patient's initial sepsis screen is negative. Risk Assessment: Do you want to hurt yourself or someone else? Patient reports no desire to harm self or others. Onset of symptoms was February 03, 2020. Care prior to arrival: None. Transition of care: patient was not received from another setting of care. 06:41 Acuity: FLAQUITO 3 sg 06:41 Method Of Arrival: Ambulatory sg Triage Assessment: 07:00 General: Appears in no apparent distress. uncomfortable, Behavior is cooperative, bp appropriate for age, anxious. Pain: Complains of pain in left ear. EENT: Reports pain in left ear. Neuro: No deficits noted. Cardiovascular: No deficits noted. Respiratory: No deficits noted. GI: No signs and/or symptoms were reported involving the gastrointestinal system. : No signs and/or symptoms were reported regarding the genitourinary system. Derm: No deficits noted. Musculoskeletal: No deficits noted. Historical: - Allergies: 06:41 No Known Allergies; sg - Home Meds: 06:41 None [Active]; sg - PMHx: 06:41 None; sg - PSHx: 06:41 None; sg - Immunization history:: Adult Immunizations up to date. - Social history:: Smoking status: Patient denies any tobacco usage or history of. Screenin:54 Abuse screen: Denies threats or abuse. Denies injuries from another. Nutritional mg2 screening: No deficits noted. Tuberculosis screening: No symptoms or risk factors identified. Fall Risk None identified. Assessment: 06:51 General: Appears in no apparent distress. comfortable, Behavior is calm, cooperative. mg2 Pain: Complains of pain in ears. Neuro: Level of Consciousness is awake, alert, obeys commands, Oriented to person, place, time, situation. Cardiovascular: Capillary refill < 3 seconds Patient's skin is warm and dry. Respiratory: Airway is patent Respiratory effort is even, unlabored, Respiratory pattern is regular, symmetrical. GI: Reports vomiting. : No deficits noted. No signs and/or symptoms were reported regarding the genitourinary system. EENT: Reports ear pain. Derm: Skin is intact, is healthy with good turgor, Skin is pink, warm \T\ dry. normal. Musculoskeletal: Circulation, motion, and sensation intact. Capillary refill < 3 seconds. 07:00 Reassessment: RECD REPORT FROM LÓPEZ GARRIDO. 24YO WF P/W LEFT EAR PAIN AND FEARED COVID bp INFECTION. ALL CURRENT ORDERS COMPLETED. 07:15 Reassessment: D/C ON HOLD FOR LAB RESULTS. bp 08:12 Reassessment: PT D/C HOME AMBULATORY, DX WITH ACUTE URI. aa5 08:15 Reassessment: Patient is alert, oriented x 3, equal unlabored respirations, skin aa5 warm/dry/pink. Vital Signs: 06:41 Weight 102.06 kg; Height 5 ft. 10 in. (177.80 cm); sg 06:51 BP 120 / 85; Pulse 94; Resp 18; Temp 99.9(O); Pulse Ox 97% on R/A; mg2 08:10 BP 107 / 68; Pulse 84; Resp 16 S; Temp 98.7(O); Pulse Ox 98% on R/A; aa5 06:41 Body Mass Index 32.28 (102.06 kg, 177.80 cm) ED Course: 06:40 Patient arrived in ED. am2 06:40 Laurent Olivo MD is Private Physician. am2 06:41 Julien Sibley MD is Attending Physician. cee 06:42 Arm band placed on. sg 06:46 Silvestre Kim, RN is Primary Nurse. mg2 06:48 Triage completed. sg 06:54 Patient has correct armband on for positive identification. Door closed. mg2 06:54 No provider procedures requiring assistance completed. Patient did not have IV access mg2 during this emergency room visit. 07:07 Primary Nurse role handed off by Silvestre Kim, HEMA bp 07:07 Ever Lewis, HEMA is Primary Nurse. bp 07:08 Laurent Olivo MD is Referral Physician. cee 07:14 Flu and/or RSV swab sent to lab. Strep swab sent to lab. covid swab sent. mg2 Administered Medications: 07:13 Drug: Motrin 800 mg Route: PO; mg2 07:16 Follow up: Response: No adverse reaction bp 07:13 Drug: Rocephin (cefTRIAXone) 1 grams Route: IM; Site: right gluteus; mg2 07:16 Follow up: Response: No adverse reaction bp Outcome: 07:10 Discharge ordered by . cee 08:15 Discharged to home ambulatory, with family. aa5 08:15 Condition: stable 08:15 Discharge instructions given to patient, Instructed on discharge instructions, follow up and referral plans. medication usage, Need to quarantine for 14 days or until called with negative COVID-19 result. Demonstrated understanding of instructions, follow-up care, medications, Prescriptions given X 3. 08:22 Patient left the ED. Addendum: 02/05/2020 17:38 Addendum: COVID-19 Result: Negative result given to RN to notify pt. Contacted by: mercy Luna RN. Notified pt of negative COVID 19 swab results. Pt advised that even with a negative test result they should remain in isolation until symptom free for 3 days without medication. Pt also advised to return to the ED for worsening symptoms. Signatures: Myriam Quiroz RN RN Casey Shipley RN RN sg Anderson, Corey, MD MD cha Williams, Irene, RN RN Francisca Soto RN RN aa5 Eveline Coello am2 Ever Lewis RN RN bp Silvestre Kim, RN RN mg2
[2020-02-03] MEDS ORDERED: IBUPROFEN 400 MG TAB ONE (07:11)
[2020-02-03] MEDS ORDERED: CEFTRIAXONE 1000 MG/VIAL ONE (07:11)
--- NOTE | 2020-02-03 07:11 | EDPHYS ---
Physician Documentation [facility] Name: Nayana Chopra Age: 24 yrs Sex: Female : 1995 Arrival Date: 02/03/2020 Time: 06:40 Bed 8 Private MD: Laurent Olivo R ED Physician Julien Sibley HPI: 02/02 06:55 This 24 yrs old Female presents to ER via Ambulatory with complaints of Ear cee Pain, Headache, Fever. 06:55 The patient presents with pain. cee 06:56 The patient presents with sore throat. The patient describes throat pain as constant, cee raw. Onset: The symptoms/episode began/occurred 2 day(s) ago. The complaints affect the left aspect of posterior pharynx and right aspect of posterior pharynx. Onset: The symptoms/episode began/occurred 2 day(s) ago. Modifying factors: The symptoms are alleviated by covering ear, the symptoms are aggravated by nothing. Severity of symptoms: At their worst the symptoms were mild, in the emergency department the symptoms are unchanged. The patient reports fever, that was measured at 100 degrees Fahrenheit. Historical: - Allergies: 06:41 No Known Allergies; sg - Home Meds: 06:41 None [Active]; sg - PMHx: 06:41 None; sg - PSHx: 06:41 None; sg - Immunization history:: Adult Immunizations up to date. - Social history:: Smoking status: Patient denies any tobacco usage or history of. ROS: 06:56 Constitutional: Negative for fever, chills, and weight loss, Eyes: Negative for injury, cee pain, redness, and discharge, Neck: Negative for injury, pain, and swelling, Cardiovascular: Negative for chest pain, palpitations, and edema, Respiratory: Negative for shortness of breath, cough, wheezing, and pleuritic chest pain, Back: Negative for injury and pain, : Negative for injury, bleeding, discharge, and swelling, MS/Extremity: Negative for injury and deformity, Skin: Negative for injury, rash, and discoloration, Neuro: Negative for headache, weakness, numbness, tingling, and seizure, Psych: Negative for depression, anxiety, suicide ideation, homicidal ideation, and hallucinations, Allergy/Immunology: Negative for hives, rash, and allergies, Endocrine: Negative for neck swelling, polydipsia, polyuria, polyphagia, and marked weight changes, Hematologic/Lymphatic: Negative for swollen nodes, abnormal bleeding, and unusual bruising. 06:56 ENT: Positive for sore throat. 06:56 Abdomen/GI: Positive for nausea and vomiting. Exam: 06:56 Head/Face: Normocephalic, atraumatic. Eyes: Pupils equal round and reactive to light, cee extra-ocular motions intact. Lids and lashes normal. Conjunctiva and sclera are non-icteric and not injected. Cornea within normal limits. Periorbital areas with no swelling, redness, or edema. Neck: Trachea midline, no thyromegaly or masses palpated, and no cervical lymphadenopathy. Supple, full range of motion without nuchal rigidity, or vertebral point tenderness. No Meningismus. Chest/axilla: Normal chest wall appearance and motion. Nontender with no deformity. No lesions are appreciated. Cardiovascular: Regular rate and rhythm with a normal S1 and S2. No gallops, murmurs, or rubs. Normal PMI, no JVD. No pulse deficits. Respiratory: Lungs have equal breath sounds bilaterally, clear to auscultation and percussion. No rales, rhonchi or wheezes noted. No increased work of breathing, no retractions or nasal flaring. Abdomen/GI: Soft, non-tender, with normal bowel sounds. No distension or tympany. No guarding or rebound. No evidence of tenderness throughout. Back: No spinal tenderness. No costovertebral tenderness. Full range of motion. Skin: Warm, dry with normal turgor. Normal color with no rashes, no lesions, and no evidence of cellulitis. MS/ Extremity: Pulses equal, no cyanosis. Neurovascular intact. Full, normal range of motion. Neuro: Awake and alert, GCS 15, oriented to person, place, time, and situation. Cranial nerves II-XII grossly intact. Motor strength 5/5 in all extremities. Sensory grossly intact. Cerebellar exam normal. Normal gait. Psych: Awake, alert, with orientation to person, place and time. Behavior, mood, and affect are within normal limits. 06:56 Constitutional: The patient appears febrile. 07:06 ENT: TM's: erythema, that is mild, Nose: nasal drainage, that is minimal, and is seen cee coming from both nares, Mouth: Lips: moist, Oral mucosa: moist, Gums: normal with healthy appearance, Tongue: is normal, abscess, is not appreciated, Posterior pharynx: Tonsils: bilaterally enlarged, erythema, that is mild. 07:06 Neck: ROM/movement: is normal, no acute changes, Meningeal signs: are not present, Kernig's sign is negative, Brudzinski's sign is negative. Vital Signs: 06:41 Weight 102.06 kg; Height 5 ft. 10 in. (177.80 cm); sg 06:51 BP 120 / 85; Pulse 94; Resp 18; Temp 99.9(O); Pulse Ox 97% on R/A; mg2 08:10 BP 107 / 68; Pulse 84; Resp 16 S; Temp 98.7(O); Pulse Ox 98% on R/A; aa5 06:41 Body Mass Index 32.28 (102.06 kg, 177.80 cm) sg MDM: 06:42 Patient medically screened. [facility] 07:01 Differential diagnosis: otitis media, viral Infection, bacterial infection. Data [facility] reviewed: vital signs, nurses notes, lab test result(s). 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 Counseling: I had a detailed discussion with the patient and/or guardian regarding: the historical points, exam findings, and any diagnostic results supporting the discharge/admit diagnosis, lab results. 02/02 06:55 Order name: Strep [facility] 02/02 06:55 Order name: Influenza Screen (a \T\ B) [facility] 02/02 06:55 Order name: COVID-19 [facility] 02/02 08:08 Order name: Throat Culture EDMS Administered Medications: 07:13 Drug: Motrin 800 mg Route: PO; mg2 07:16 Follow up: Response: No adverse reaction bp 07:13 Drug: Rocephin (cefTRIAXone) 1 grams Route: IM; Site: right gluteus; mg2 07:16 Follow up: Response: No adverse reaction bp Disposition: 02/03/20 07:10 Discharged to Home. Impression: Acute upper respiratory infection, unspecified, Fever, unspecified, Vomiting, Otitis media, unspecified, left ear. - Condition is Stable. - Discharge Instructions: Otitis Media, Adult, Fever, Adult, Nausea and Vomiting, Adult, Upper Respiratory Infection, Adult, Cool Mist Vaporizer, Otitis Media, Adult, [id number], Nausea and Vomiting, Adult, Rawq-sw-Bgmh, Cough, Adult, COVID-19. - Prescriptions for Mala- D 12 Hour 60-120 mg Oral Tablet Sustained Release 12 hr - take 1 tablet by ORAL route every 12 hours As needed; 30 tablet. Zofran 4 mg Oral Tablet - take 1 tablet by ORAL route every 12 hours As needed; 20 tablet. Zithromax Z- Bryant 250 mg Oral Tablet - take 1 tablet by ORAL route as directed for 5 days Day 1 - take two (2) tablets one time. Day 2, 3, 4 , 5 take one (1) tablet once daily.; 6 tablet. - Medication Reconciliation Form, Thank You Letter, Antibiotic Education, Prescription Opioid Use form. - Follow up: Laurent Olivo MD; When: 2 - 3 days; Reason: Recheck today's complaints, Continuance of care, Re-evaluation by your physician. - Problem is new. - Symptoms have improved. Signatures: Dispatcher [employer] EDMS Casey Shipley RN RN sg Anderson, Corey, MD MD cha Williams, Irene, RN RN iw Gardose, Michele, Ever Noel RN, RN bp Corrections: (The following items were deleted from the chart) 08:22 07:10 02/03/2020 07:10 Discharged to Home. Impression: Acute upper respiratory iw infection, unspecified; Fever, unspecified; Vomiting; Otitis media, unspecified, left ear. Condition is Stable. Forms are Medication Reconciliation Form, Thank You Letter, Antibiotic Education, Prescription Opioid Use. Follow up: Laurent Olivo; When: 2 - 3 days; Reason: Recheck today's complaints, Continuance of care, Re-evaluation by your physician. Problem is new. Symptoms have improved. cee
[2020-02-03] MEDS ORDERED: WATER FOR INJ,STERILE 10 ML ONE (07:12)
[2020-02-03 08:27] VITALS: BP 120/85; TEMP 99.9; O2SAT 97
== END 2020-02-03 08:22 | disposition home or self-care (01) ==
LOC: ER 06:38
DX: J06.9 Acute upper respiratory infection, unspecified (principal); R11.10 Vomiting, unspecified; H66.92 Otitis media, unspecified, left ear; Z20.828 Contact with and (suspected) exposure to other viral communicable diseases
CPT/HCPCS: 87070; 87081; 87804 ×2; 96372; 99283; U0002

== ENCOUNTER 2020-11-09 21:31 | Emergency (ER) | payer OTHER ==
--- OUTSIDE RECORDS SUMMARY | 2020-11-09 21:34 | XMS REPORT | Continuity of Care Document ---
:1995 Author Organization [facility] t Address [address] [place] [address] Care Team Providers Name Role Phone Unavailable [...] [facility] [place] Medications This patient has no known medications. Procedures This patient has no known procedures. Results Test Description Test Time Test Comments Results Result Comments Source HGB HCT 2020-01-20 13:15:00 Test Item Value Reference Range Interpretation Comme nts HEMOGLOBIN (test code = HGB) 11.4 g/dL 10.7-13.9 N HEMATOCRIT (test code = HCT) 34.5 % 32.1-42.1 N AG HEPATITIS B [id number] 14:34:00 Test Item Value Reference Range Interpretation Comments AG HEPATITIS B SURFACE (test code NONREACTIVE NONREACTIVE = HBSAG) IS CONSENT FORM SIGNED FOR HIV TESTING? YAB HEPATITIS C [id number] 14:34:00 Test Item Value Reference Range Interpretation Comments AB HEPATITIS C (test code = NONREACTIVE NONREACTIVE HCVAB) SIGNAL TO CUTOFF (test code = 0.16 <0.80 N CUTOFF) IS CONSENT FORM SIGNED FOR HIV TESTING? YAB [id number] 14:34:00 Test Item Value Reference Range Interpretation Comments AB TREPONEMA (test code = TREPAB) NONREACTIVE NONREACTIVE IS CONSENT FORM SIGNED FOR HIV TESTING? YAB HIV 1 14:34:00 Test Item Value Reference Range Interpretation Comments AB HIV 1 2 (test code = FGQ18OG) NONREACTIVE IS CONSENT FORM SIGNED FOR HIV TESTING? YAG HEPATITIS B [id number] 14:34:00 Test Item Value Reference Range Interpretation Comments AG HEPATITIS B SURFACE (test code NONREACTIVE NONREACTIVE = HBSAG) IS CONSENT FORM SIGNED FOR HIV TESTING? YAB HEPATITIS C [id number] 14:34:00 Test Item Value Reference Range Interpretation Comments AB HEPATITIS C (test code = NONREACTIVE NONREACTIVE HCVAB) SIGNAL TO CUTOFF (test code = 0.16 <0.80 N CUTOFF) IS CONSENT FORM SIGNED FOR HIV TESTING? YAB [id number] 14:34:00 Test Item Value Reference Range Interpretation Comments AB TREPONEMA (test code = TREPAB) NONREACTIVE NONREACTIVE IS CONSENT FORM SIGNED FOR HIV TESTING? YAB HIV 1 14:34:00 Test Item Value Reference Range Interpretation Comments AB HIV 1 2 (test NONREACTIVE NONREACTIVE Done by [facility] code = [id number]) 4th Gen HIV Ag/Ab Combo Screen IS CONSENT FORM SIGNED FOR HIV TESTING? YAG HEPATITIS B [id number] 14:11:00 Test Item Value Reference Range Interpretation Comments AG HEPATITIS B SURFACE (test code NONREACTIVE NONREACTIVE = HBSAG) IS CONSENT FORM SIGNED FOR HIV TESTING? CJ HEPATITIS C [id number] 14:11:00 Test Item Value Reference Range Interpretation Comments AB HEPATITIS C (test code = HCVAB) NONREACTIVE SIGNAL TO CUTOFF (test code = CUTOFF) <0.80 IS CONSENT FORM SIGNED FOR HIV TESTING? YAB [id number] 14:11:00 Test Item Value Reference Range Interpretation Comments AB TREPONEMA (test code = TREPAB) NONREACTIVE NONREACTIVE IS CONSENT FORM SIGNED FOR HIV TESTING? YAB HIV 1 14:11:00 Test Item Value Reference Range Interpretation Comments AB HIV 1 2 (test code = [id number]) NONREACTIVE IS CONSENT FORM SIGNED FOR HIV TESTING? YCBC W/AUTO [id number] 13:58:00 Test Item Value Reference Range Interpretation [...] code = PLTMR) COVID 19 Asymptomatic IH [id number] 13:08:00 Test Item Value Reference Range Interpretation [...] and/o r diagnosis of CO VID-19 under Kzeljub78 4(b)(1) of the Act, 21 U.S .C. 360bbb-3(b)(1), unless theauthorizatio n is terminated or r evoked sooner.
[2020-11-10] MEDS ORDERED: ACETAMINOPHEN 500 MG TAB ONE (00:46)
--- NOTE | 2020-11-10 04:10 | ER ---
Nurse's Notes [facility] Name: Nayana Chopra Age: 25 yrs Sex: Female : 1995 Arrival Date: 11/09/2020 Time: 21:35 Bed 12 Private MD: Diagnosis: Acute pharyngitis, unspecified Presentation: 11/09 23:21 Chief complaint: Patient states: Sore throat, fever, headache that began this morning; lp1 fever of 100.1 at home, Tylenol taken last at 1200. Coronavirus screen: Client denies travel out of the [place] in the last 14 days. fatigue, fever, headache, sore throat, Client presents with at least one sign or symptom that may indicate coronavirus-19. Standard/surgical mask placed on the client. Ebola Screen: No symptoms or risks identified at this time. Risk Assessment: Do you want to hurt yourself or someone else? Patient reports no desire to harm self or others. Onset of symptoms was November 09, 2020. 23:21 Method Of Arrival: Ambulatory lp1 23:21 Acuity: FLAQUITO 4 lp1 23:23 Initial Sepsis Screen: Does the patient meet any 2 criteria? No. Patient's initial lp1 sepsis screen is negative. Does the patient have a suspected source of infection? No. Patient's initial sepsis screen is negative. 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 - Social history:: Smoking status: Patient denies any tobacco usage or history of. Screenin:23 Abuse screen: Denies threats or abuse. Denies injuries from another. Nutritional lp1 screening: No deficits noted. Tuberculosis screening: No symptoms or risk factors identified. Fall Risk None identified. Assessment: 23:30 General: Appears in no apparent distress. Behavior is calm, cooperative, appropriate lp1 for age. Pain: Denies pain. Neuro: Level of Consciousness is awake, alert, obeys commands. Cardiovascular: Patient's skin is warm and dry. Respiratory: Airway is patent Respiratory effort is even, unlabored, Breath sounds are clear. GI: No signs and/or symptoms were reported involving the gastrointestinal system. : No signs and/or symptoms were reported regarding the genitourinary system. EENT: Throat is pink Reports pain when swallowing. Derm: Skin is pink, warm \T\ dry. Musculoskeletal: No deficits noted. Vital Signs: 23:23 BP 110 / 65; Pulse 63; Resp 16; Temp 98.3(O); Pulse Ox 99% on R/A; Weight 99.34 kg (R); lp1 Height 5 ft. 10 in. (177.80 cm); Pain 5/10; 23:23 Body Mass Index 31.42 (99.34 kg, 177.80 cm) lp1 ED Course: 21:35 Patient arrived in ED. bp1 23:22 Triage completed. lp1 23:23 Arm band placed on. lp1 23:27 COVID swab sent to lab. Flu and/or RSV swab sent to lab. Strep swab sent to lab. 1 23:34 Mani Duran MD is Attending Physician. [facility] 11/10 00:00 Patient has correct armband on for positive identification. lp1 00:29 Caroele Woodall, RN is Primary Nurse. kg 02:00 No provider procedures requiring assistance completed. Patient did not have IV access lp1 during this emergency room visit. Administered Medications: 00:29 Drug: Tylenol 1000 mg Route: PO; kg Outcome: 02:30 Patient left the ED. 1 Signatures: Lexi Garibay RN RN 1 Amy Gutierrez bp1 Mani Duran MD MD [facility] Carolee Woodall RN RN kg Corrections: (The following items were deleted from the chart) 05:52 05:48 Patient left the ED. lp1 lp1
--- NOTE | 2020-11-10 04:11 | EDPHYS ---
Physician Documentation [facility] Name: Nayana Chopra Age: 25 yrs Sex: Female : 1995 Arrival Date: 11/09/2020 Time: 21:35 Bed 12 Private MD: ED Physician Mani Duran HPI: 11/09 23:50 This 25 yrs old Female presents to ER via Ambulatory with complaints of Sore mh7 Throat, Fever. 23:50 The patient presents with sore throat. The patient describes throat pain as mh7 intermittent. Onset: The symptoms/episode began/occurred this morning, today. Severity of symptoms: At their worst the symptoms were moderate, earlier today, in the emergency department the symptoms have improved, moderately. Modifying factors: The symptoms are alleviated by over the counter medications, NSAIDs, the symptoms are aggravated by nothing. Associated signs and symptoms: Pertinent positives: fever, Sore throat Pertinent negatives chest pain, chills, cough, diarrhea, dysphagia, earache, flu-like symptoms, headache, nausea, rhinorrhea, shortness of breath, vomiting. 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 - Social history:: Smoking status: Patient denies any tobacco usage or history of. ROS: 23:50 Eyes: Negative for injury, pain, redness, and discharge, Neck: Negative for injury, mh7 pain, and swelling, Cardiovascular: Negative for chest pain, palpitations, and edema, Respiratory: Negative for shortness of breath, cough, wheezing, and pleuritic chest pain, Abdomen/GI: Negative for abdominal pain, nausea, vomiting, diarrhea, and constipation, Back: Negative for injury and pain, : Negative for injury, bleeding, discharge, and swelling, MS/Extremity: Negative for injury and deformity, Skin: Negative for injury, rash, and discoloration, Neuro: Negative for headache, weakness, numbness, tingling, and seizure, Psych: Negative for depression, anxiety, suicide ideation, homicidal ideation, and hallucinations, Allergy/Immunology: Negative for hives, rash, and allergies, Endocrine: Negative for neck swelling, polydipsia, polyuria, polyphagia, and marked weight changes, Hematologic/Lymphatic: Negative for swollen nodes, abnormal bleeding, and unusual bruising. Exam: 23:50 Constitutional: This is a well developed, well nourished patient who is awake, alert, mh7 and in no acute distress. Head/Face: Normocephalic, atraumatic. Eyes: Pupils equal round and reactive to light, extra-ocular motions intact. Lids and lashes normal. Conjunctiva and sclera are non-icteric and not injected. Cornea within normal limits. Periorbital areas with no swelling, redness, or edema. 23:50 Neck: Trachea midline, no thyromegaly or masses palpated, and no cervical lymphadenopathy. Supple, full range of motion without nuchal rigidity, or vertebral point tenderness. No Meningismus. Chest/axilla: Normal chest wall appearance and motion. Nontender with no deformity. No lesions are appreciated. Cardiovascular: Regular rate and rhythm with a normal S1 and S2. No gallops, murmurs, or rubs. Normal PMI, no JVD. No pulse deficits. Respiratory: Lungs have equal breath sounds bilaterally, clear to auscultation and percussion. No rales, rhonchi or wheezes noted. No increased work of breathing, no retractions or nasal flaring. Abdomen/GI: Soft, non-tender, with normal bowel sounds. No distension or tympany. No guarding or rebound. No evidence of tenderness throughout. Back: No spinal tenderness. No costovertebral tenderness. Full range of motion. Skin: Warm, dry with normal turgor. Normal color with no rashes, no lesions, and no evidence of cellulitis. MS/ Extremity: Pulses equal, no cyanosis. Neurovascular intact. Full, normal range of motion. Neuro: Awake and alert, GCS 15, oriented to person, place, time, and situation. Cranial nerves II-XII grossly intact. Motor strength 5/5 in all extremities. Sensory grossly intact. Cerebellar exam normal. Normal gait. Psych: Awake, alert, with orientation to person, place and time. Behavior, mood, and affect are within normal limits. 23:50 ENT: External ear(s): are unremarkable, Ear canal(s): are normal, TM's: are normal, Nose: is normal, Mouth: is normal, Posterior pharynx: Airway: normal, Tonsils: bilaterally enlarged, with erythema, Uvula: normal, swelling, is not appreciated, erythema, that is moderate, exudate, is not appreciated, peritonsillar mass, is not appreciated, pooling of secretions, is not appreciated, Dental exam: normal, Voice: is normal. Vital Signs: 23:23 BP 110 / 65; Pulse 63; Resp 16; Temp 98.3(O); Pulse Ox 99% on R/A; Weight 99.34 kg (R); lp1 Height 5 ft. 10 in. (177.80 cm); Pain 5/10; 23:23 Body Mass Index 31.42 (99.34 kg, 177.80 cm) lp1 MDM: 11/10 04:06 Differential diagnosis: Allergic rhinitis, influenza, upper respiratory infection, mh7 viral syndrome. Differential diagnosis: group A strep tonsillitis, pharyngitis. Data reviewed: vital signs, nurses notes, lab test result(s), Flu: negative. Data interpreted: Pulse oximetry: on room air is 99 %. Interpretation: normal. Counseling: I had a detailed discussion with the patient and/or guardian regarding: Patient eloped prior to return of test results.. 04:10 Patient medically screened. [facility] 11/09 23:27 Order name: Strep; Complete Time: 01:32 [facility] 11/09 23:27 Order name: Flu; Complete Time: 01:32 [facility] 11/10 00:58 Order name: Throat Culture [facility] 11/10 01:40 Order name: SARS-COV-2 RT PCR; Complete Time: 02:19 EDKS Administered Medications: 00:29 Drug: Tylenol 1000 mg Route: PO; kg Disposition Summary: 11/10/20 04:10 Eloped Disposition: after being seen by provider [facility] Problem: new [facility] Symptoms: have improved [facility] Reason: unknown mh Condition: Stable [facility] Diagnosis - Acute pharyngitis, unspecified mh7 Followup: [facility] - With: Private Physician - When: 1 - 2 days - Reason: Worsening of condition, Recheck today's complaints, Continuance of care, Re-evaluation by your physician Signatures: Dispatcher [employer] EDLexi Spears RN RN lp1 Mani Duran MD MD mh7 Carolee Woodall RN RN kg Corrections: (The following items were deleted from the chart) 00:42 11/09 23:27 CORONAVIRUS+ ordered. EDMS EDMS
[2020-11-10 06:09] VITALS: BP 110/65; TEMP 98.3; O2SAT 99
== END 2020-11-10 05:48 | disposition left against medical advice (07) ==
LOC: ER 21:31
DX: J02.9 Acute pharyngitis, unspecified (principal); Z20.822 Contact with and (suspected) exposure to COVID-19
CPT/HCPCS: 87070; 87081; 87804 ×2; 99283; U0003

== ENCOUNTER 2020-11-21 10:25 | Emergency (ER) | payer OTHER ==
--- OUTSIDE RECORDS SUMMARY | 2020-11-21 10:28 | XMS REPORT | Continuity of Care Document ---
:1995 Author Organization [facility] t Address [address] [place] [address] Care Team Providers Name Role Phone Unavailable [...] [facility] [place] Medications This patient has no known medications. Procedures This patient has no known procedures. Results Test Description Test Time Test Comments Results Result Comments Source HGB HCT 2020-01-20 13:15:00 Test Item Value Reference Range Interpretation Comme nts HEMOGLOBIN (test code = HGB) 11.4 g/dL 10.7-13.9 N HEMATOCRIT (test code = HCT) 34.5 % 32.1-42.1 N AG HEPATITIS B [id number] 14:34:00 Test Item Value Reference Range Interpretation Comments AG HEPATITIS B SURFACE (test code NONREACTIVE NONREACTIVE = HBSAG) IS CONSENT FORM SIGNED FOR HIV TESTING? YAB HEPATITIS C [id number] 14:34:00 Test Item Value Reference Range Interpretation Comments AB HEPATITIS C (test code = NONREACTIVE NONREACTIVE HCVAB) SIGNAL TO CUTOFF (test code = 0.16 <0.80 N CUTOFF) IS CONSENT FORM SIGNED FOR HIV TESTING? YAB [id number] 14:34:00 Test Item Value Reference Range Interpretation Comments AB TREPONEMA (test code = TREPAB) NONREACTIVE NONREACTIVE IS CONSENT FORM SIGNED FOR HIV TESTING? YAB HIV 1 14:34:00 Test Item Value Reference Range Interpretation Comments AB HIV 1 2 (test code = [id number]) NONREACTIVE IS CONSENT FORM SIGNED FOR HIV TESTING? YAG HEPATITIS B [id number] 14:34:00 Test Item Value Reference Range Interpretation Comments AG HEPATITIS B SURFACE (test code NONREACTIVE NONREACTIVE = HBSAG) IS CONSENT FORM SIGNED FOR HIV TESTING? YAB HEPATITIS C [id number] 14:34:00 Test Item Value Reference Range Interpretation Comments AB HEPATITIS C (test code = NONREACTIVE NONREACTIVE HCVAB) SIGNAL TO CUTOFF (test code = 0.16 <0.80 N CUTOFF) IS CONSENT FORM SIGNED FOR HIV TESTING? YAB [id number] 14:34:00 Test Item Value Reference Range Interpretation Comments AB TREPONEMA (test code = TREPAB) NONREACTIVE NONREACTIVE IS CONSENT FORM SIGNED FOR HIV TESTING? YAB HIV 1 14:34:00 Test Item Value Reference Range Interpretation Comments AB HIV 1 2 (test NONREACTIVE NONREACTIVE Done by [facility] code = NEW16IU) 4th Gen HIV Ag/Ab Combo Screen IS CONSENT FORM SIGNED FOR HIV TESTING? YAG HEPATITIS B [id number] 14:11:00 Test Item Value Reference Range Interpretation Comments AG HEPATITIS B SURFACE (test code NONREACTIVE NONREACTIVE = HBSAG) IS CONSENT FORM SIGNED FOR HIV TESTING? CJ HEPATITIS C [id number] 14:11:00 Test Item Value Reference Range Interpretation Comments AB HEPATITIS C (test code = HCVAB) NONREACTIVE SIGNAL TO CUTOFF (test code = CUTOFF) <0.80 IS CONSENT FORM SIGNED FOR HIV TESTING? YAB [id number] 14:11:00 Test Item Value Reference Range Interpretation Comments AB TREPONEMA (test code = TREPAB) NONREACTIVE NONREACTIVE IS CONSENT FORM SIGNED FOR HIV TESTING? YAB HIV 1 14:11:00 Test Item Value Reference Range Interpretation Comments AB HIV 1 2 (test code = RLA50CV) NONREACTIVE IS CONSENT FORM SIGNED FOR HIV TESTING? YCBC W/AUTO [id number] 13:58:00 Test Item Value Reference Range Interpretation [...] code = PLTMR) COVID 19 Asymptomatic IH [id number] 13:08:00 Test Item Value Reference Range Interpretation [...] and/o r diagnosis of CO VID-19 under [id number] 4(b)(1) of the Act, 21 U.S .C. 360bbb-3(b)(1), unless theauthorizatio n is terminated or r evoked sooner.
--- NOTE | 2020-11-21 13:41 | ER ---
Nurse's Notes [facility] Name: Nayana Chopra Age: 25 yrs Sex: Female : 1995 Arrival Date: 11/21/2020 Time: 10:28 Bed DX2 Private MD: Laurent Olivo R Diagnosis: Viral infection, unspecified;Headache;Diarrhea, unspecified Presentation: 11/21 10:57 Chief complaint: Patient states: Headache and diarrhea today. Coronavirus screen: ca1 Client denies travel out of the [place] in the last 14 days. diarrhea, headache, Client presents with at least one sign or symptom that may indicate coronavirus-19. Standard/surgical mask placed on the client. Provider contacted for isolation considerations. Ebola Screen: Patient negative for fever greater than or equal to 101.5 degrees Fahrenheit, and additional compatible Ebola Virus Disease symptoms Patient denies exposure to infectious person. Patient denies travel to an Ebola-affected area in the 21 days before illness onset. No symptoms or risks identified at this time. Initial Sepsis Screen: Does the patient meet any 2 criteria? No. Patient's initial sepsis screen is negative. Does the patient have a suspected source of infection? No. Patient's initial sepsis screen is negative. Risk Assessment: Do you want to hurt yourself or someone else? Patient reports no desire to harm self or others. Onset of symptoms was November 21, 2020. 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 - Social history:: Smoking status: Patient denies any tobacco usage or history of. Screenin:16 Abuse screen: Denies threats or abuse. Denies injuries from another. Nutritional ss screening: No deficits noted. Tuberculosis screening: Never had TB. Fall Risk None identified. Assessment: 13:16 General: Appears in no apparent distress. comfortable, Behavior is calm, cooperative, ss Reports feeling ill for 0-12 hours. Pain: Denies pain. Neuro: Level of Consciousness is awake, alert, obeys commands, Oriented to person, place, time, situation. Cardiovascular: Capillary refill < 3 seconds is brisk in bilateral fingers Patient's skin is warm and dry. Respiratory: Airway is patent Respiratory effort is even, unlabored, Respiratory pattern is regular, symmetrical. GI: Reports diarrhea, Patient currently denies nausea, vomiting. EENT: Oral mucosa is moist. Derm: Skin is intact, is healthy with good turgor, Skin is dry, Skin is pink, warm \T\ dry. normal. Musculoskeletal: Circulation, motion, and sensation intact. Range of motion: intact in all extremities, Swelling absent. Vital Signs: 10:57 BP 115 / 72; Pulse 74; Resp 16 S; Temp 97.6(TE); Pulse Ox 99% on R/A; Weight 97.52 kg ca1 (R); Height 5 ft. 10 in. (177.80 cm) (R); Pain 0/10; 10:57 Body Mass Index 30.85 (97.52 kg, 177.80 cm) ca1 ED Course: 10:28 Patient arrived in ED. mr 10:29 Laurent Olivo MD is Private Physician. mr 10:58 Triage completed. ca1 10:58 Arm band placed on right wrist. ca1 13:16 Liliana Randolph RN is Primary Nurse. ss 13:16 Patient has correct armband on for positive identification. Call light in reach. ss 13:37 Sanchez Collins MD is Attending Physician. kdr 13:38 Laurent Olivo MD is Referral Physician. kdr 13:59 No provider procedures requiring assistance completed. Patient did not have IV access ss during this emergency room visit. Administered Medications: No medications were administered Outcome: 13:40 Discharge ordered by MD. kdr 13:59 Discharged to home ambulatory. ss 13:59 Condition: good 13:59 Discharge instructions given to patient, family, Instructed on discharge instructions, follow up and referral plans. Demonstrated understanding of instructions, follow-up care. 13:59 Patient left the ED. ss Signatures: Sanchez Collins MD MD [facility] [address] Amy Bailey mr Liliana Randolph RN RN ss Zenia Lopez RN RN ca1
--- NOTE | 2020-11-21 13:41 | EDPHYS ---
Physician Documentation [facility] Name: Nayana Chopra Age: 25 yrs Sex: Female : 1995 Arrival Date: 11/21/2020 Time: 10:28 Bed DX2 Private MD: Laurent Olivo R ED Physician Sanchez Collins HPI: 11/21 16:21 This 25 yrs old Female presents to ER via Ambulatory with complaints of Covid kdr Test, Headache, Diarrhea. 18:46 The patient has been exposed to Covid recently and today has had very mild headache as kdr well as some diarrhea. Onset: The symptoms/episode began/occurred gradually, today. Severity of symptoms: At their worst the symptoms were mild in the emergency department the symptoms are unchanged. 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 - Social history:: Smoking status: Patient denies any tobacco usage or history of. ROS: 18:50 Constitutional: Negative for fever, chills, and weight loss, Eyes: Negative for injury, kdr pain, redness, and discharge, ENT: Negative for injury, pain, and discharge, Neck: Negative for injury, pain, and swelling, Cardiovascular: Negative for chest pain, palpitations, and edema, Respiratory: Negative for shortness of breath, cough, wheezing, and pleuritic chest pain, Back: Negative for injury and pain, : Negative for injury, bleeding, discharge, and swelling, MS/Extremity: Negative for injury and deformity, Skin: Negative for injury, rash, and discoloration, Psych: Negative for depression, anxiety, suicide ideation, homicidal ideation, and hallucinations, Allergy/Immunology: Negative for hives, rash, and allergies, Endocrine: Negative for neck swelling, polydipsia, polyuria, polyphagia, and marked weight changes, Hematologic/Lymphatic: Negative for swollen nodes, abnormal bleeding, and unusual bruising. 18:50 Abdomen/GI: Positive for diarrhea, Negative for nausea, vomiting, abdominal cramps, abdominal distension. 18:50 Neuro: Positive for headache, Negative for altered mental status, dizziness, visual changes, weakness. Exam: 18:50 Constitutional: This is a well developed, well nourished patient who is awake, alert, kdr and in no acute distress. Head/Face: Normocephalic, atraumatic. Eyes: Pupils equal round and reactive to light, extra-ocular motions intact. Lids and lashes normal. Conjunctiva and sclera are non-icteric and not injected. Cornea within normal limits. Periorbital areas with no swelling, redness, or edema. Neck: Trachea midline, no thyromegaly or masses palpated, and no cervical lymphadenopathy. Supple, full range of motion without nuchal rigidity, or vertebral point tenderness. No Meningismus. Chest/axilla: Normal chest wall appearance and motion. Nontender with no deformity. No lesions are appreciated. Vital Signs: 10:57 BP 115 / 72; Pulse 74; Resp 16 S; Temp 97.6(TE); Pulse Ox 99% on R/A; Weight 97.52 kg ca1 (R); Height 5 ft. 10 in. (177.80 cm) (R); Pain 0/10; 10:57 Body Mass Index 30.85 (97.52 kg, 177.80 cm) ca1 MDM: 13:40 Patient medically screened. kdr 18:50 Data reviewed: vital signs, nurses notes, lab test result(s). Counseling: I had a kdr detailed discussion with the patient and/or guardian regarding: the historical points, exam findings, and any diagnostic results supporting the discharge/admit diagnosis, lab results, the need for outpatient follow up. Special discussion: I discussed with the patient/guardian in detail that at this point there is no indication for admission to the hospital. It is understood, however, that if the symptoms persist or worsen the patient needs to return immediately for re-evaluation. 11/21 10:59 Order name: Flu ca1 11/21 11:00 Order name: Influenza Screen (A ; Complete Time: 13:37 EDMS 11/21 12:22 Order name: SARS-COV-2 RT PCR; Complete Time: 13:37 EDMS Administered Medications: No medications were administered Disposition Summary: 11/21/20 13:40 Discharge Ordered Location: Home kdr Problem: new kdr Symptoms: have improved kdr Condition: Stable kdr Diagnosis - Viral infection, unspecified kdr - Headache kdr - Diarrhea, unspecified kdr Followup: kdr - With: Laurent Olivo MD - When: 2 - 3 days - Reason: If symptoms return, Further diagnostic work-up, Recheck today's complaints, Continuance of care, Re-evaluation by your physician Discharge Instructions: - Discharge Summary Sheet kdr - General Headache Without Cause kdr - Diarrhea, Adult, [id number] kdr - Viral Illness, Adult kdr Forms: - Medication Reconciliation Form kdr - Thank You Letter kdr Signatures: Dispatcher [employer] EDWI Sanchez Collins MD MD kdr Zenia Lopez RN RN ca1 Corrections: (The following items were deleted from the chart) 11:18 11:00 CORONAVIRUS+BRZ ordered. [facility]
[2020-11-21 14:10] VITALS: BP 115/72; TEMP 97.6; O2SAT 99
== END 2020-11-21 13:59 | disposition home or self-care (01) ==
LOC: ER 10:25
DX: B34.9 Viral infection, unspecified (principal); R19.7 Diarrhea, unspecified; Z20.822 Contact with and (suspected) exposure to COVID-19
CPT/HCPCS: 87804 ×2; 99281; U0003

== ENCOUNTER 2021-04-16 11:59 | Emergency (ER) | payer OTHER ==
--- OUTSIDE RECORDS SUMMARY | 2021-04-16 12:03 | XMS REPORT | Continuity of Care Document ---
:1995 Author Organization [facility] t Address [address] [place] [address] Dr. [address] [place] [address] Care Team Providers Name Role Phone Jakob Burrows Attending Clinician Unavailable SONG Attending Clinician Unavailable Jakob Burrows Admitting Clinician Unavailable Payers Payer Name Policy Type Policy Number Effective Date Expiration Date S ource Problems This patient has no known problems. Allergies, Adverse Reactions, Alerts Allergy Allergy Status Severity Reaction(s) Onset Inactive Treating Comm ents Source Name Type Date Date Clinician No Known DA Active U 2019-04 [facility] No Known DA Active U 2019-04 [facility] [address] [place] [address] NO KNOWN Drug Active [facility] Medications This patient has no known medications. Procedures Procedure Date / Time Performed Performing Clinician [facility] e [id number] 2020-01-19 00:00:00 [facility] [id number] 2020-01-19 00:00:00 [facility] [id number] 2020-01-19 00:00:00 [facility] [id number] 2020-01-19 00:00:00 [facility] Encounters Start End Encounter Admission Attending Care Care Encounter Source Date/Time Date/Time Type Type Clinicians Facility Department ID 2020-01-19 Inpatient Markos GIOVANY TAMMI [id number] [facility] 09:31:00 [facility] [id number] [facility] 2020-11-28 2020-11-28 Outpatient R MADHU [facility] [id number] [facility] 14:20:00 14:20:00 [facility] 2020-11-28 2020-11-28 Outpatient R [facility] [id number] [facility] 14:20:00 14:20:00 [id number] [facility] Results Test Description Test Time Test Comments Results Result Comments Source HGB HCT 2020-01-20 13:15:00 Test Item Value Reference Range Interpretation Comme nts HEMOGLOBIN (test code = HGB) 11.4 g/dL 10.7-13.9 N HEMATOCRIT (test code = HCT) 34.5 % 32.1-42.1 N AG HEPATITIS B [id number] 14:34:00 Test Item Value Reference Range Interpretation Comments AG HEPATITIS B SURFACE (test code NONREACTIVE NONREACTIVE = HBSAG) IS CONSENT FORM SIGNED FOR HIV TESTING? YAB HEPATITIS C [id number] 14:34:00 Test Item Value Reference Range Interpretation Comments AB HEPATITIS C (test code = NONREACTIVE NONREACTIVE HCVAB) SIGNAL TO CUTOFF (test code = 0.16 <0.80 N CUTOFF) IS CONSENT FORM SIGNED FOR HIV TESTING? YAB [id number] 14:34:00 Test Item Value Reference Range Interpretation Comments AB TREPONEMA (test code = TREPAB) NONREACTIVE NONREACTIVE IS CONSENT FORM SIGNED FOR HIV TESTING? YAB HIV 1 14:34:00 Test Item Value Reference Range Interpretation Comments AB HIV 1 2 (test code = [id number]) NONREACTIVE IS CONSENT FORM SIGNED FOR HIV TESTING? YAG HEPATITIS B [id number] 14:34:00 Test Item Value Reference Range Interpretation Comments AG HEPATITIS B SURFACE (test code NONREACTIVE NONREACTIVE = HBSAG) IS CONSENT FORM SIGNED FOR HIV TESTING? YAB HEPATITIS C [id number] 14:34:00 Test Item Value Reference Range Interpretation Comments AB HEPATITIS C (test code = NONREACTIVE NONREACTIVE HCVAB) SIGNAL TO CUTOFF (test code = 0.16 <0.80 N CUTOFF) IS CONSENT FORM SIGNED FOR HIV TESTING? YAB [id number] 14:34:00 Test Item Value Reference Range Interpretation Comments AB TREPONEMA (test code = TREPAB) NONREACTIVE NONREACTIVE IS CONSENT FORM SIGNED FOR HIV TESTING? YAB HIV 1 14:34:00 Test Item Value Reference Range Interpretation Comments AB HIV 1 2 (test NONREACTIVE NONREACTIVE Done by Jakob Garg code = [id number]) 4th Gen HIV Ag/Ab Combo Screen IS CONSENT FORM SIGNED FOR HIV TESTING? YAG HEPATITIS B [id number] 14:11:00 Test Item Value Reference Range Interpretation Comments AG HEPATITIS B SURFACE (test code NONREACTIVE NONREACTIVE = HBSAG) IS CONSENT FORM SIGNED FOR HIV TESTING? YAB HEPATITIS C [id number] 14:11:00 Test Item Value Reference Range Interpretation Comments AB HEPATITIS C (test code = HCVAB) NONREACTIVE SIGNAL TO CUTOFF (test code = CUTOFF) <0.80 IS CONSENT FORM SIGNED FOR HIV TESTING? YAB [id number] 14:11:00 Test Item Value Reference Range Interpretation Comments AB TREPONEMA (test code = TREPAB) NONREACTIVE NONREACTIVE IS CONSENT FORM SIGNED FOR HIV TESTING? YAB HIV 1 14:11:00 Test Item Value Reference Range Interpretation Comments AB HIV 1 2 (test code = [id number]) NONREACTIVE IS CONSENT FORM SIGNED FOR HIV TESTING? YCBC W/AUTO [id number] 13:58:00 Test Item Value Reference Range Interpretation [...] code = PLTMR) COVID 19 Asymptomatic IH [id number] 13:08:00 Test Item Value Reference Range Interpretation [...] or approved; th e test hasbeen authori zed by FDA under an Emerge ncy Use [...] and/o r diagnosis of CO VID-19 under Iraikpm24 4(b)(1) of the Act, 21 U.S .C. 360bbb-3(b)(1), unless theauthorizatio n is terminated or r evoked sooner.
[2021-04-16] MEDS ORDERED: ONDANSETRON 4 MG/2 ML VIAL ONE (14:37)
[2021-04-16] MEDS ORDERED: NA CHLORIDE 0.9% 1,000 ML ONE (14:37)
[2021-04-16 14:39] LABS: Absolute Lymphocytes (CBC) 1.7 K/uL (0.7-4.9); Hematocrit 38.9 % (36.0-45.0); Lymphocytes % 21.3 % (15.3-44.8); MPV 7.6 fL (7.6-11.3); RBC Red Blood Cell Count 4.28 M/uL (3.86-4.86)
[2021-04-16 15:04] LABS: Albumin 3.5 g/dL (3.4-5.0); Bilirubin Direct 0.1 mg/dL (0-0.2); Bilirubin Total 0.5 mg/dL (0.2-1.0); Potassium 3.6 mmol/L (3.5-5.1); Protein, Total 7.6 g/dL (6.4-8.2)
--- NOTE | 2021-04-16 15:35 | RAD REPORT ---
EXAM DESCRIPTION: RAD - Chest Single View - 04/16/2021 3:29 pm CLINICAL HISTORY: CHEST PAIN Chest pain. COMPARISON: CHEST SINGLE VIEW dated 09/05/2010 FINDINGS: Portable technique limits examination quality. The lungs are grossly clear. The heart is normal in size. No displaced fractures. IMPRESSION: No acute intrathoracic process suspected.
--- NOTE | 2021-04-16 16:28 | EDPHYS ---
Physician Documentation [facility] Name: Nayana Chopra Age: 25 yrs Sex: Female : 1995 Arrival Date: 04/16/2021 Time: 12:01 Bed 9 Private MD: ED Physician Sanchez Collins HPI: 04/16 16:03 This 25 yrs old Female presents to ER via Unassigned with complaints of Chest Pain, kb Sore Throat, Vomiting. 16:03 The patient presents with sore throat. The patient describes throat pain as constant. kb Onset: The symptoms/episode began/occurred last night. Severity of symptoms: At their worst the symptoms were moderate, in the emergency department the symptoms are unchanged. Modifying factors: The symptoms are alleviated by nothing, the symptoms are aggravated by swallowing, Patient's oral intake status: good. Associated signs and symptoms: Pertinent positives: Sore throat vomiting. The patient has not experienced similar symptoms in the past. The patient has not recently seen a physician. Pt reports sore throat and vomiting since last night. Had chest pressure this morning. 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 - Social history:: Smoking status: Patient denies any tobacco usage or history of. ROS: 16:02 Constitutional: Negative for fever, chills, and weight loss. kb 16:02 ENT: Positive for sore throat. 16:02 Abdomen/GI: Positive for nausea and vomiting, Negative for abdominal pain. 16:02 All other systems are negative. Exam: 16:02 Constitutional: This is a well developed, well nourished patient who is awake, alert, kb and in no acute distress. Head/Face: Normocephalic, atraumatic. ENT: Moist Mucous membranes Cardiovascular: Regular rate and rhythm with a normal S1 and S2. No gallops, murmurs, or rubs. No pulse deficits. Respiratory: Respirations even and unlabored. No increased work of breathing. Talking in full sentences Abdomen/GI: Soft, non-tender. No distention Skin: Warm, dry with normal turgor. Normal color. MS/ Extremity: Pulses equal, no cyanosis. Neurovascular intact. Full, normal range of motion. Neuro: Awake and alert, GCS 15, oriented to person, place, time, and situation. Moves all extremities. Normal gait. Psych: Awake, alert, with orientation to person, place and time. Behavior, mood, and affect are within normal limits. 16:02 ENT: Posterior pharynx: erythema, that is moderate. Vital Signs: 14:00 BP 118 / 87; Pulse 81; Resp 17; Temp 98.7; Pulse Ox 100% on R/A; Weight 91.63 kg; jl7 Height 5 ft. 10 in. (177.80 cm); 16:04 BP 118 / 87; Pulse 81; Resp 18; Temp 98.7; Pulse Ox 100% ; Weight 91.63 kg; Height 5 kb ft. 10 in. (177.80 cm); 16:10 BP 123 / 76; Pulse 68; Resp 17; Pulse Ox 100% ; jl7 16:33 BP 115 / 66; Pulse 80; Resp 18; Pulse Ox 100% ; kb 16:04 Body Mass Index 28.98 (91.63 kg, 177.80 cm) kb MDM: 14:01 Patient medically screened. kb 16:02 Data reviewed: vital signs, nurses notes. Data interpreted: Pulse oximetry: on room air kb is 100 %. Interpretation: normal. Counseling: I had a detailed discussion with the patient and/or guardian regarding: the historical points, exam findings, and any diagnostic results supporting the discharge/admit diagnosis, lab results, radiology results, the need for outpatient follow up, a family practitioner, to return to the emergency department if symptoms worsen or persist or if there are any questions or concerns that arise at home. 04/16 14:02 Order name: Basic Metabolic Panel; Complete Time: 15:14 kb 04/16 14:02 Order name: CBC with Diff; Complete Time: 14:52 kb 04/16 14:02 Order name: Hepatic Function; Complete Time: 15:14 kb 04/16 14:02 Order name: Lipase; Complete Time: 15:14 kb 04/16 14:02 Order name: Strep; Complete Time: 14:52 kb 04/16 14:02 Order name: COVID-19 SARS RT PCR (Document "Date of Onset" if Symptomatic); Complete kb Time: 16:24 04/16 14:02 Order name: IV Saline Lock kb 04/16 14:02 Order name: Labs collected and sent kb 04/16 14:02 Order name: Chest Single View XRAY; Complete Time: 15:36 kb 04/16 14:02 Order name: EKG; Complete Time: 14:03 kb 04/16 14:02 Order name: EKG - Nurse/Tech kb 04/16 14:51 Order name: Throat Culture EDTX 04/16 16:04 Order name: PO challenge; Complete Time: 16:20 kb Administered Medications: 14:39 Drug: NS 0.9% 1000 ml Route: IV; Rate: 1000 ml; Site: right antecubital; kb 14:39 Drug: Zofran (Ondansetron) 4 mg Route: IVP; Site: right antecubital; kb Disposition: 18:02 Co-signature as Attending Physician, Sanchez Collins MD I agree with the assessment and kdr plan of care. Disposition Summary: 04/16/21 16:27 Discharge Ordered Location: Home kb Condition: Stable kb Diagnosis - Coronavirus infection, unspecified kb Followup: kb - With: Emergency Department - When: As needed - Reason: Worsening of condition Followup: kb - With: Private Physician - When: 2 - 3 days - Reason: Recheck today's complaints, Continuance of care, Re-evaluation by your physician Discharge Instructions: - Discharge Summary Sheet kb - Viral Respiratory Infection, Ssho-Kr-Jovy kb - COVID-19 kb Forms: - Medication Reconciliation Form kb - Thank You Letter kb - Antibiotic Education kb - Prescription Opioid Use kb Prescriptions: - Zofran 4 mg Oral Tablet - take 1 tablet by ORAL route every 6 hours As needed; 20 tablet; Refills: 0, kb Product Selection Permitted Signatures: Dispatcher [employer] EDMS Neli Negron, TIMBER INSPECTOR-C TIMBER INSPECTOR-Sanchez Zavala MD MD kdr Leal, Jahala, RN RN jl7
--- NOTE | 2021-04-16 16:28 | ER ---
Nurse's Notes [facility] Name: Nayana Chopra Age: 25 yrs Sex: Female : 1995 Arrival Date: 04/16/2021 Time: 12:01 Bed 9 Private MD: Diagnosis: Coronavirus infection, unspecified Presentation: 04/16 14:00 Chief complaint: Patient states: Vomiting, sore throat, since last night. jl7 14:00 Coronavirus screen: sore throat, vomiting. Client presents with at least one sign or jl7 symptom that may indicate coronavirus-19. Standard/surgical mask placed on the client. Ebola Screen: No symptoms or risks identified at this time. Initial Sepsis Screen: Does the patient meet any 2 criteria? No. Patient's initial sepsis screen is negative. Does the patient have a suspected source of infection? No. Patient's initial sepsis screen is negative. Risk Assessment: Do you want to hurt yourself or someone else? Patient reports no desire to harm self or others. Onset of symptoms was April 15, 2021. Care prior to arrival: None. 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 - Social history:: Smoking status: Patient denies any tobacco usage or history of. Assessment: 16:10 Reassessment: Pt given water for PO challenge. 7 Vital Signs: 14:00 BP 118 / 87; Pulse 81; Resp 17; Temp 98.7; Pulse Ox 100% on R/A; Weight 91.63 kg; jl7 Height 5 ft. 10 in. (177.80 cm); 16:04 BP 118 / 87; Pulse 81; Resp 18; Temp 98.7; Pulse Ox 100% ; Weight 91.63 kg; Height 5 kb ft. 10 in. (177.80 cm); 16:10 BP 123 / 76; Pulse 68; Resp 17; Pulse Ox 100% ; jl7 16:33 BP 115 / 66; Pulse 80; Resp 18; Pulse Ox 100% ; kb 16:04 Body Mass Index 28.98 (91.63 kg, 177.80 cm) kb ED Course: 12:01 Patient arrived in ED. as 13:38 [facility] kb 13:38 Sanchez Collins MD is Attending Physician. kb 14:00 Arm band placed on right wrist. jl7 15:29 Chest Single View XRAY In Process Unspecified. EDMS 16:06 Alexei Huang, RN is Primary Nurse. jl7 16:08 Triage completed. jl7 Administered Medications: 14:39 Drug: NS 0.9% 1000 ml Route: IV; Rate: 1000 ml; Site: right antecubital; kb 14:39 Drug: Zofran (Ondansetron) 4 mg Route: IVP; Site: right antecubital; kb Outcome: 16:27 Discharge ordered by MD. kb 16:34 Patient left the ED. kb Signatures: Dispatcher [employer] EDIA Neli Negron FNP-C FNP-Cassie Simental as Alexei Huang, RN RN jl7
[2021-04-16 16:41] VITALS: TEMP 98.7; O2SAT 100
[2021-04-16 16:56] VITALS: BP 115/66
== END 2021-04-16 16:34 | disposition home or self-care (01) ==
LOC: ER 11:59
DX: U07.1 COVID-19 (principal)
CPT/HCPCS: 93005 ×2; 87070; 85025; 80048; 36415; 80076; 87081; 83690; 71045; 96374; 99283; U0003; J7030; J2405

== ENCOUNTER 2024-03-30 12:40 | Emergency (ER) | payer OTHER ==
--- OUTSIDE RECORDS SUMMARY | 2024-03-30 12:43 | XMS REPORT | Continuity of Care Document ---
Author Name Unknown Address [address] [facility] [address] [place] [address] [facility] Address [address] [facility] [address] [place] [address] Care Team Providers Care Investigator Fraud Name Role Phone PCP, PATIENT DOES NOT HAVE A Primary Care Physic linette Unavailable Medhat Burrows Attending Clinician UnavailVARSHA Griggs Attending Clinician Unavailable EDITA BONILLA Attending Clinician Unavailable Edita Bonilla DO Attending Clinician [phone] MELANI GOVEA Attending Clinician Unavaila MELANI Cameron Attending Clinician Unavaila francisco Nurse, [facility] Attending Clinician Unavailable Amy Sauceda Attending Clinician [phone] Unknown, Attending Attending Clinician UnavailAMY Pratt Attending Clinician UnavailMiroslava Tee Attending Clinician [phone] MIROSLAVA CARLOS Attending Clinician Unavailable Doctor Unassigned, [place] Attending Clinician Delphine Gutierrez MD Attending Clinician [phone] KEN LEUNG Attending Clinician Unavailable RICHMOND VAZQUEZ Admitting Clinician Unavaila Medhat Monzon Admitting Clinician UnavailDELPHINE Dash Admitting Clinician Unavaillalit soria Payers Payer Name Policy Type Policy Number Effective Date Expirati on Date Source [employer] MEDICAID [id number] 2020 00:00:00 [employer] MP [facility] 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 ON 9 [id number] 2023 00:00:00 Problems Condition Name Condition Details Condition Category Status Onset Date Resolution Date Last Treatment Date Treating Clinician Comments Source Counseling for control regarding intrauteri ne device (IUD) Counseling for control regarding intrauteri ne device (IUD) Disease Active 12-12 00:00: 00 [facility] Screening for malignant neoplasm of the cervix Screening for malignant neoplasm of the cervix Disease Active 12-12 00:00: 00 [facility] Vaginal lesion Vaginal lesion Disease Active 12-12 00:00: 00 [facility] Generalize d anxiety disorder Generalize d anxiety disorder Disease Active 12-12 00:00: 00 [facility] BMI 30.0-30.9, adult BMI 30.0-30.9, adult Disease Active 12-12 00:00: 00 [facility] General counseling and advice on female contracept ion General counseling and advice on female contracept ion Disease Active 12-12 00:00: 00 [facility] Screening for venereal disease Screening for venereal disease Disease Active 11-17 00:00: 00 [facility] Attention deficit hyperactiv ity disorder (ADHD) Attention deficit hyperactiv ity disorder (ADHD) Disease Active 06-07 00:00: 00 Overview: Formattin g of this note might be different from the original. 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 [facility] Allergies, Adverse Reactions, Alerts Allergy Name Allergy Type Status Severity Reaction(s) Onset Date Inactive Date Treating Clinician Comments Source No Known Allergie s DA Active U 2019-04 00:00: 00 [facility] No Known Allergie s DA Active U 2019-04 00:00: 00 [facility] NO KNOWN ALLERGIE S Drug Class Active [facility] Social History Social Habit Start Date Stop Date Quantity Comments Source [facility] SDOH Alcohol Frequency [facility] History SDOH Alcohol Std Drinks [facility] History SDOH Alcohol Binge [facility] History of tobacco use Passive smoker [facility] Alcohol intake 2022-06-04 00:00:00 2022-06-04 00:00:00 Current drinker of alcohol (finding) [facility] History of Social function 2022-06-04 00:00:00 2022-06-04 00:00:00 [facility] Exposure to SARS-CoV-2 (event) 2022-05-24 00:00:00 2022-06-03 12:41:00 Not sure [facility] Tobacco use and exposure 2021-12-12 00:00:00 2021-12-12 00:00:00 Smokeless tobacco non-user [facility] Alcohol Comment 2016-11-17 00:00:00 2016-11-17 00:00:00 not often, only social occassions [facility] Sex Assigned At 1995 00:00:00 1995 00:00:00 [facility] Smoking Status Start Date Stop Date Source Never smoked tobacco [facility] Medications Ordered Medication Name Filled Medication Name Start Date Stop Date Current Medication? Ordering Clinician Indication Dosage Frequency Signature (SIG) Comments Components Source hydrOXYzine 10 mg tablet 1-24 00:00: 00 Yes [id number] 10mg Take 1 tablet by mouth every 6 (six) hours. [facility] levonorgest reL (MIRENA) IUD 1 Device 06-04 20:30: 00 06-04 19:39 :00 No [id number] 1{devic e} [facility] miSOPROStoL 200 mcg tablet 2-15 00:00: 00 06-04 00:00 :00 No Take one tablet the night before IUD insertion procedure and take one tablet the morning of the IUD insertion procedure. This is not for abortive treatment; patient will have IUD insertion. [facility] oseltamivir (TAMIFLU) 75 mg capsule 2021-04 00:00: 00 03-19 05:59 :00 No [id number] 75mg Take 1 capsule by mouth in the morning and 1 capsule in the evening. Take with meals. Do all this for 5 days. [facility] cephALEXin (KEFLEX) 500 mg capsule 12-25 00:00: 00 01-05 04:59 :00 No [id number] 500mg Take 1 capsule by mouth 4 (four) times daily for 10 days. [facility] buPROPion SR (WELLBUTRIN SR) 100 mg SR tablet 12-12 00:00: 00 Yes [id number] 100mg Take 1 tablet by mouth in the morning and 1 tablet in the evening. [facility] Immunizations Ordered Immunization Name Filled Immunization Name Date Status Comments Source [facility] 2016-11-17 00:00:00 Completed [facility] 2016-11-17 00:00:00 Completed [facility] 2016-11-17 00:00:00 Completed [facility] 2016-11-17 00:00:00 Completed [facility] 2016-11-17 00:00:00 Completed [facility] 2016-11-17 00:00:00 Completed [facility] 2016-11-17 00:00:00 Completed [facility] 2016-11-17 00:00:00 Completed [facility] Unknown Completed [facility] Vital Signs Vital Name Observation Time Observation Value Comments S leopoldogarrick Systolic blood pressure 2023-05-12 17:00:00 111 mm[Hg] [facility] Diastolic blood pressure 2023-05-12 17:00:00 77 mm[Hg] [facility] Heart rate 2023-05-12 17:00:00 71 /min [facility] Respiratory rate 2023-05-12 17:00:00 16 /min [facility] Oxygen saturation in Arterial blood by Pulse oximetry 2023-05-12 17:00:00 99 /min [facility] Body temperature 2023-05-12 15:15:00 36.83 [place] [facility] Body height 2023-05-12 15:15:00 177.8 cm [facility] weight 2023-05-12 15:15:00 102.059 kg Univ [facility] BMI 2023-05-12 15:15:00 32.28 kg/m2 [facility] Systolic blood pressure 2022-06-04 19:05:00 114 mm[Hg] [facility] Diastolic blood pressure 2022-06-04 19:05:00 81 mm[Hg] [facility] Heart rate 2022-06-04 19:05:00 70 /min Unive [facility] Body temperature 2022-06-04 19:05:00 36.94 [place] [facility] Respiratory rate 2022-06-04 19:05:00 16 /min [facility] Body height 2022-06-04 19:05:00 177.8 cm Univ [facility] Body weight 2022-06-04 19:05:00 97.523 kg Univ [facility] BMI 2022-06-04 19:05:00 30.85 kg/m2 [facility] Oxygen saturation in Arterial blood by Pulse oximetry 2022-06-04 19:05:00 98 /min [facility] Systolic blood pressure 2022-06-03 19:03:00 114 mm[Hg] [facility] Diastolic blood pressure 2022-06-03 19:03:00 79 mm[Hg] [facility] Heart rate 2022-06-03 19:03:00 79 /min [facility] Body temperature 2022-06-03 19:03:00 36.83 [place] [facility] Respiratory rate 2022-06-03 19:03:00 16 /min [facility] Body height 2022-06-03 19:03:00 177.8 cm [facility] Body weight 2022-06-03 19:03:00 97.977 kg Univ [facility] BMI 2022-06-03 19:03:00 30.99 kg/m2 [facility] Oxygen saturation in Arterial blood by Pulse oximetry 2022-06-03 19:03:00 98 /min [facility] Systolic blood pressure 2022-05-21 20:05:00 111 mm[Hg] [facility] Diastolic blood pressure 2022-05-21 20:05:00 76 mm[Hg] [facility] Heart rate 2022-05-21 20:05:00 74 /min Unive [facility] Body temperature 2022-05-21 20:05:00 36.72 [place] [facility] Respiratory rate 2022-05-21 20:05:00 18 /min [facility] Body height 2022-05-21 20:05:00 177.8 cm [facility] Body weight 2022-05-21 20:05:00 95.709 kg [facility] BMI 2022-05-21 20:05:00 30.28 kg/m2 [facility] Systolic blood pressure 2022-03-13 18:27:00 115 mm[Hg] [facility] Diastolic blood pressure 2022-03-13 18:27:00 80 mm[Hg] [facility] Heart rate 2022-03-13 18:27:00 97 /min [facility] Body temperature 2022-03-13 18:27:00 37.28 [place] [facility] Respiratory rate 2022-03-13 18:27:00 16 /min [facility] Body height 2022-03-13 18:27:00 177.8 cm [facility] Body weight 2022-03-13 18:27:00 91.491 kg [facility] BMI 2022-03-13 18:27:00 28.94 kg/m2 [facility] Oxygen saturation in Arterial blood by Pulse oximetry 2022-03-13 18:27:00 98 /min [facility] Systolic blood pressure 2021-12-25 23:24:00 118 mm[Hg] [facility] Diastolic blood pressure 2021-12-25 23:24:00 81 mm[Hg] [facility] Heart rate 2021-12-25 23:24:00 70 /min Unive [facility] Body temperature 2021-12-25 23:24:00 37.11 [place] [facility] Respiratory rate 2021-12-25 23:24:00 16 /min [facility] Body height 2021-12-25 23:24:00 177.8 cm [facility] Body weight 2021-12-25 23:24:00 89.359 kg [facility] BMI 2021-12-25 23:24:00 28.27 kg/m2 [facility] Oxygen saturation in Arterial blood by Pulse oximetry 2021-12-25 23:24:00 97 /min [facility] Systolic blood pressure 2021-12-12 20:30:00 120 mm[Hg] [facility] Diastolic blood pressure 2021-12-12 20:30:00 85 mm[Hg] [facility] Heart rate 2021-12-12 20:30:00 67 /min [facility] Body temperature 2021-12-12 20:30:00 36.72 [place] [facility] Respiratory rate 2021-12-12 20:30:00 18 /min [facility] Body height 2021-12-12 20:30:00 177.8 cm [facility] Body weight 2021-12-12 20:30:00 96.163 kg [facility] BMI 2021-12-12 20:30:00 30.42 kg/m2 [facility] Procedures Procedure Date / Time Performed Performing Clinicia n Source RAPID INFLUENZA A/B 2023-05-12 16:29:00 Chana Bonilla [facility] LACTIC ACID WHOLE BLOOD 2023-05-12 16:29:00 Singer Edita [facility] COVID-19 (ID NOW RAPID TESTING) 2023-05-12 16:29:00 Singer Edita [facility] COMP. METABOLIC PANEL ([id number]) 2023-05-12 16:28:00 Edita Bonilla [facility] CBC WITH DIFF 2023-05-12 16:28:00 Singer Edita [facility] POCT TEST 2022-06-03 00:00:00 Gary Govea [facility] POCT MOLECULAR FLU 2022-03-13 18:33:00 Unknown, Attend ing [facility] [id number] 2020-01-19 [id number] 2020[facility] [id number] 2020-01-19 00:00:00 [facility] [id number] 2020-01-19 00:00:00 [facility] Encounters Start Date/Time End Date/Time Encounter Type Admission Type Attending [facility] Care Facility Care Department Encounter ID Source 2021-10-31 20:02:[address] [facility] OPH [id number] [facility] 2020-01-19 09:31:00 Inpatient Medhat Burrows [facility] [id number] [facility] 2024-01-04 16:30:00 2024-01-04 16:30:00 Outpatient VARSHA RODGERS [id number] [facility] 2023-12-26 10:40:00 2023-12-26 10:40:00 Outpatient R [facility] [id number] [facility] 2023-11-25 16:30:00 2023-11-25 16:30:00 Outpatient VARSHA RODGERS [id number] [facility] 2023-09-17 16:30:00 2023-09-17 16:30:00 Outpatient VARSHA RODGERS [id number] [facility] 2023-06-22 13:30:00 2023-06-22 13:30:00 Outpatient VARSHA RODGERS [id number] [facility] 2023-05-12 09:11:00 2023-05-12 11:38:00 Emergency X EDITA BONILLA [facility] ERT [id number] [facility] 2023-05-12 09:11:00 2023-05-12 11:38:00 Emergency Edita Bonilla [facility] 1.840.114 350.1.13.10 4.2.7.2.686 [id number] [facility] 2022-12-16 14:30:00 2022-12-16 14:30:00 Outpatient R XUANMELANI YOSSIMARCELANAM, MELANI [facility] [id number] [facility] 2022-11-26 13:30:00 2022-11-26 13:30:00 Outpatient R XUANMELANI XUAN, MELANI [facility] [id number] [facility] 2022-09-07 13:00:00 2022-09-07 13:00:00 Outpatient R XUANMELANI YOSSIMARCELANAM MELANI [facility] [id number] [facility] 2022-08-27 13:00:00 2022-08-27 13:00:00 Outpatient R XUANMELANI YOSSIMARCELANAM MELANI [facility] [id number] [facility] 2022-06-04 13:00:00 2022-06-04 13:18:50 Outpatient R YOSSIMARCELFARHANMELANI SPRING YOSSIMARCELANAMMELANI [facility] [id number] [facility] 2022-06-04 13:00:00 2022-06-04 13:18:50 Office Visit Xuan [facility] 1.0.114 350.1.13.10 4.2.7.2.686 [id number] [facility] 2022-06-03 13:00:00 2022-06-03 13:15:00 Nurse Visit Nurse, Carla [facility] 1.840.114 350.1.13.10 4.2.7.2.686 [id number] [facility] 2022-06-03 13:00:00 2022-06-03 13:00:00 Outpatient R MELANI GOVEA CHERYAL [facility] [id number] [facility] 2022-05-21 14:00:00 2022-05-21 14:30:00 Office Visit Melani Govea [facility] 1.84.114 350.1.13.10 4.2.7.2.686 [id number] [facility] 2022-05-21 14:00:00 2022-05-21 14:00:00 Outpatient R MELANI GOVEA CHERYAL [facility] [id number] [facility] 2022-05-18 00:00:00 2022-05-18 00:00:00 Refill Xuan [facility] 1.84.114 350.1.13.10 4.2.7.2.686 [id number] [facility] 2022-03-13 12:20:00 2022-03-13 12:40:00 Urgent Care EddyAmy greer Unknown, Attending [facility] 1.840.114 350.1.13.10 4.2.7.2.686 [id number] [facility] 2022-03-13 12:20:00 2022-03-13 12:20:00 Outpatient R AMY SILVEIRA [facility] [id number] [facility] 2022-03-13 00:00:00 2022-03-13 00:00:00 Letter (Out) Amy Silveira [facility] 1..840.114 350.1.13.10 4.2.7.2.686 [id number] [facility] 2022-01-13 15:30:00 2022-01-13 15:30:00 Outpatient R MELANI GOVEA CHERYAL [facility] [id number] [facility] 2022-01-09 14:00:00 2022-01-09 14:00:00 Outpatient R MELANI GOVEA CHERYAL [facility] [id number] [facility] 2021-12-25 18:20:00 2021-12-25 18:40:00 Urgent Care IleanaMiroslava gutierrez Unknown, Attending [facility] 1.114 350.1.13.10 4.2.7.2.686 [id number] [facility] 2021-12-25 18:20:00 2021-12-25 18:20:00 Outpatient R ILEANAMIROSLAVA GUTIERREZ [facility] [id number] [facility] 2021-12-12 15:00:00 2021-12-12 15:51:00 Outpatient R MELANI GOVEA CHERYAL [facility] [id number] [facility] 2021-12-12 15:00:00 2021-12-12 15:51:00 Outpatient R MELANI GOVEA CHERYAL [facility] [id number] [facility] 2021-12-12 15:00:00 2021-12-12 15:51:00 Office Visit XuanMelani [facility] 1.114 350.1.13.10 4.2.7.2.686 [id number] [facility] 2021-12-12 00:00:00 2021-12-12 00:00:00 Orders Only Doctor Unassigned, [place] [facility] 1.114 350.1.13.10 4.2.7.2.686 [id number] [facility] 2021-12-08 14:15:00 2021-12-08 14:15:00 Outpatient R RUFINAMELANI SPRING RUFINAMELANI SPRING [facility] [id number] [facility] 2021-10-31 17:10:00 2021-10-31 21:10:00 Emergency EDITA MARINA [facility] ERT [id number] [facility] 2021-10-31 17:10:00 2021-10-31 21:10:00 Emergency Delphine [facility] 1.2.840.114 350.1.13.10 4.2.7.2.686 [id number] [facility] 2020-11-28 14:20:00 2020-11-28 14:20:00 Outpatient R KEN LEUNG [facility] [id number] [facility] Results Test Description Test Time Test Comments Results Result Co mments Source [facility] with [id number] 16:52:21* Test Item Value Reference Range Interpretation Comme nts WBC (test code = 6690-2) 9.27 See_Comment [Automated [employer]] The system which generated this result transmitted reference range: 4.30 - 11.10 10*3/?L. The reference range was not used to interpret this result as normal/abnormal. RBC (test code = 789-8) 4.10 See_Comment [Automated [employer]] The system which generated this result transmitted reference range: 3.93 - 5.25 10*6/?L. The reference range was not used to interpret this result as normal/abnormal. HGB (test code = 718-7) 12.7 g/dL 11.6-15.0 HCT (test code = 4544-3) 37.8 % 35.7-45.2 MCV (test code = 787-2) 92.2 fL 80.6-95.5 MCH (test code = 785-6) 31.0 pg 25.9-32.8 MCHC (test code = 786-4) 33.6 g/dL 31.6-35.1 RDW-SD (test code = 81955-2) 41.1 fL 39.0-49.9 RDW-CV (test code = 788-0) 12.2 % 12.0-15.5 PLT (test code = 777-3) 267 See_Comment [Automated messa ge] The system which generated this result transmitted reference range: 166 - 358 10*3/?L. The reference range was not used to interpret this result as normal/abnormal. MPV (test code = 85184-7) 10.1 fL 9.5-12.9 NRBC/100 WBC (test code = 0123225255) 0.0 See_Comment [Automated me ssage] The system which generated this result transmitted reference range: 0.0 - 10.0 /100 WBCs. The reference range was not used to interpret this result as normal/abnormal. NRBC x10^3 (test code = 1295819938) See_Comment [Automated me ssage] The system which generated this result transmitted reference range: 10*3/?L. The reference range was not used to interpret this result as normal/abnormal. GRAN MAT (NEUT) % (test code = 770-8) 64.7 % IMM GRAN % (test code = 0989729382) 0.30 % LYMPH % (test code = 736-9) 23.0 % MONO % (test code = 5905-5) 7.2 % EOS % (test code = 713-8) 4.0 % BASO % (test code = 706-2) 0.8 % GRAN MAT x10^3(ANC) (test code = 2153970409) 6.00 10*3/uL 1.88-7.09 IMM GRAN x10^3 (test code = 8014933581) 0.03 10*3/uL 0.00-0.06 LYMPH x10^3 (test code = 731-0) 2.13 10*3/uL 1.32-3.29 MONO x10^3 (test code = 742-7) 0.67 10*3/uL 0.33-0.92 EOS x10^3 (test code = 711-2) 0.37 10*3/uL 0.03-0.39 BASO x10^3 (test code = 704-7) 0.07 10*3/uL 0.01-0.07 [facility] [id number] 16:35:43* Test Item Value Reference Range Interpretation Comme nts LACTIC ACID (test code = 6559691515) 0.68 mmol/L 0.50-2.20 Lab Interpretation (test cod e = 04459-6) [facility] [id number] 19:07:00* Test Item Value Reference Range Interpretation Comme nts POCT PREG (test code = 1605) Negative On board controls acceptable with C Line (test code = 3574) Yes POCT PREG LOT # (test code = 3575) POCT PREG TEST DATE ( test code = 3576) [facility] MOLECULAR [id number] 18:37:34* Test Item Value Reference Range Interpretation Comme nts POCT Molecular FluA (test co de = 42032-0) Positive Negative A Lab Interpretation (test cod e = 28326-8) Abnormal [facility] [id number] 13:15:00* Test Item Value Reference Range Interpretation Comme nts HEMOGLOBIN (test code = HGB) 11.4 g/dL 10.7-13.9 N HEMATOCRIT (test code = HCT) 34.5 % 32.1-42.1 N AG HEPATITIS B [id number] 14:34:00* Test Item Value Reference Range Interpretation Comme nts AG HEPATITIS B SURFACE (test code = HBSAG) NONREACTIVE NONREACTIVE IS CONSENT FORM SIGNED FOR HIV TESTING? YAB HEPATITIS C [id number] 14:34:00* Test Item Value Reference Range Interpretation Comme nts AB HEPATITIS C (test code = HCVAB) NONREACTIVE NONREACTIVE SIGNAL TO CUTOFF (test code = CUTOFF) 0.16 <0.80 N IS CONSENT FORM SIGNED FOR HIV TESTING? YAB [id number] 14:34:00* Test Item Value Reference Range Interpretation Comme nts AB TREPONEMA (test code = TREPAB) NONREACTIVE NONREACTIVE IS CONSENT FORM SIGNED FOR HIV TESTING? YAB HIV 1 14:34:00* Test Item Value Reference Range Interpretation Comme nts AB HIV 1 2 (test code = DLJ38KZ) NONREACTIVE IS CONSENT FORM SIGNED FOR HIV TESTING? YAG HEPATITIS B [id number] 14:34:00* Test Item Value Reference Range Interpretation Comme nts AG HEPATITIS B SURFACE (test code = HBSAG) NONREACTIVE NONREACTIVE IS CONSENT FORM SIGNED FOR HIV TESTING? YAB HEPATITIS C [id number] 14:34:00* Test Item Value Reference Range Interpretation Comme nts AB HEPATITIS C (test code = HCVAB) NONREACTIVE NONREACTIVE SIGNAL TO CUTOFF (test code = CUTOFF) 0.16 <0.80 N IS CONSENT FORM SIGNED FOR HIV TESTING? YAB [id number] 14:34:00* Test Item Value Reference Range Interpretation Comme nts AB TREPONEMA (test code = TREPAB) NONREACTIVE NONREACTIVE IS CONSENT FORM SIGNED FOR HIV TESTING? YAB HIV 1 14:34:00* Test Item Value Reference Range Interpretation Comme nts AB HIV 1 2 (test code = FPJ23JG) NONREACTIVE NONREACTIVE Done by [employer] 4[employer] Gen HIV Ag/Ab Combo Screen IS CONSENT FORM SIGNED FOR HIV TESTING? YAG HEPATITIS B [id number] 14:11:00* Test Item Value Reference Range Interpretation Comme nts AG HEPATITIS B SURFACE (test code = HBSAG) NONREACTIVE NONREACTIVE IS CONSENT FORM SIGNED FOR HIV TESTING? KANDYB HEPATITIS C [id number] 14:11:00* Test Item Value Reference Range Interpretation Comme nts AB HEPATITIS C (test code = HCVAB) NONREACTIVE SIGNAL TO CUTOFF (test code = CUTOFF) <0.80 IS CONSENT FORM SIGNED FOR HIV TESTING? YAB [id number] 14:11:00* Test Item Value Reference Range Interpretation Comme nts AB TREPONEMA (test code = TREPAB) NONREACTIVE NONREACTIVE IS CONSENT FORM SIGNED FOR HIV TESTING? YAB HIV 1 14:11:00* Test Item Value Reference Range Interpretation Comme nts AB HIV 1 2 (test code = PZB65LB) NONREACTIVE IS CONSENT FORM SIGNED FOR HIV TESTING? YCBC W/AUTO [id number] 13:58:00* Test Item Value Reference Range Interpretation Comme nts WHITE BLOOD CELL (test code = WBC) [...] pg 27-35 N MEAN CELL HGB CONCETRATION ( test code = MCHC) 32.8 gm/dL 32.2-34.1 N RED CELL DISTRIBUTION WIDTH (test code = RDW) 13.8 % 12.4-16.5 N PLATELET COUNT (test code = PLT) 296 K/mm3 133-385 N MEAN PLATELET VOLUME (test c ode = MPV) 9.8 fl 9.1-12.7 N NEUTROPHIL % (test code = NT%) 79.8 [...] = BA#) 0.0 K/mm3 RBC MORPHOLOGY REQUIRED (pelon t code = RBCM) NORMAL NORMAL PLATELET MORPHOLOGY REQUIRED (test code = PLTMR) NORMAL NORMAL COVID 19 Asymptomatic IH [id number] 13:08:00* Test Item Value Reference Range Interpretation Comme nts COVID 19 Asymptomatic IH AG (test code = COVNONPUIAG) NEGATIVE NEGATIVE This test has be en authorized only for the detection ofproteins from SARS-CoV-2, not for any other viruses orpathogens. Negative results should be treated as presumptive andconfirmed with a molecular assay, if necessary for patientmanagement. Negative results do not rule out COVID-19 andshould not be used as the sole basis for treatment orpatient management decisions, including infection controldecisions. Negative results should be considered in thecontext of a patient's recent exposures, history and thepresence of clinical signs and symptoms consistent withCOVID-19. This test has not been FDA cleared or approved; the test hasbeen authorized by FDA under an Emergency Use Authorization(EUA) for use by laboratories certified under the CLIA thatmeet the requirements to perform moderate, high or waivedcomplexity tests. This test is authorized for use at thePoint of Care (POC), i.e., in patient care settingsoperating under a CLIA Certificate of Waiver, Certificate ofCompliance, or Certificate of Accreditation. This test is only authorized for the duration of thedeclaration that circumstances exist justifying theauthorization of emergency use of in vitro diagnostic testsfor detection and/or diagnosis of COVID-19 under Mbgvpyy023(b)(1) of the Act, 21 U.S.C. 360bbb-3(b)(1), unless theauthorization is terminated or revoked sooner.
[2024-03-30] MEDS ORDERED: ONDANSETRON 4 MG/2 ML VIAL ONE (13:34)
[2024-03-30] MEDS ORDERED: NA CHLORIDE 0.9% 1,000 ML ONE (13:34)
[2024-03-30 13:59] LABS: Specific Gravity 1.028 (1.005-1.030)
[2024-03-30 14:02] LABS: Specific Gravity 1.028 (1.005-1.030); Urine Bacteria None Seen /HPF (<20); Urine Bilirubin NEGATIVE (Negative); Urine Blood 3+ (OVER) (Negative); Urine Clarity Extremely Turbid (Clear); Urine Color Yellow (Yellow); Urine Culture Reflex Order REFLEXED; Urine Glucose NEGATIVE (Negative); Urine Ketones NEGATIVE (Negative); Urine Microscopic Reflex YN ORDER UMIC; Urine Mucus 2+ /HPF (None Seen); Urine Nitrite NEGATIVE (Negative); Urine Protein 1+ (Negative); Urine RBC >50 /HPF (None Seen); Urine Urobilinogen Normal (Normal); Urine WBC >50 /HPF (<5)
[2024-03-30 14:13] LABS: Absolute Basophils 0.1 K/uL (0-0.5); Absolute Eosinophils 0.5 K/uL (0-0.5); Absolute Lymphocytes (CBC) 2.3 K/uL (0.7-4.9); Absolute Monocytes 0.5 K/uL (0.1-1.3); Absolute Neutrophil 7.4 K/uL (1.8-8.0); Basophils % 0.5 % (0-1.3); Eosinophils % 4.5 % (0-4.4); Hematocrit 38.8 % (36.0-45.0); Hemoglobin 12.9 g/dL (12.0-15.0); Lymphocytes % 21.5 % (15.3-44.8); MCHC 33.3 g/dL (32.0-36.0); MPV 7.3 fL (7.6-11.3); Monocytes % 4.9 % (3.3-12.3); Neutrophils % 68.6 % (41.7-73.7); Platelets 318 thou/uL (152-406); RBC Red Blood Cell Count 4.17 M/uL (3.86-4.86); Red Cell Distribution Width 13.3 % (12.1-15.2)
[2024-03-30 14:15] LABS: Albumin 3.7 g/dL (3.4-5.0); Anion Gap 9.8 mEq/L (5.0-15.0); Bilirubin Total 0.4 mg/dL (0.2-1.0); Globulin 3.8 g/dL (2.3-3.5); Potassium 3.8 mEq/L (3.5-5.1); Protein, Total 7.5 g/dL (6.4-8.2)
[2024-03-30] MEDS ORDERED: CEFTRIAXONE 2000 MG/VIAL ONE (15:20)
[2024-03-30] MEDS ORDERED: CEFDINIR 300 MG CAP PO ONE (15:21)
[2024-03-30] MEDS ORDERED: CIPROFLOXACIN HCL 500 MG TAB ONE (15:21)
--- NOTE | 2024-03-30 15:25 | RAD REPORT ---
EXAMINATION: CT ABDOMEN AND PELVIS WITH CONTRAST CLINICAL INDICATION: Abd pain;Flank pain TECHNIQUE: CT abdomen and pelvis was performed, after the administration of IV contrast, as per [facility] protocol. Axial, sagittal and coronal reconstructions were obtained. One or more of the following dose reduction techniques were used: Automated exposure control, adjustment of the mA and k V according to patient size, and iterative reconstruction. Unless otherwise specified, incidental findings do not require dedicated imaging follow-up. COMPARISON: None FINDINGS: LOWER CHEST: The visualized lung bases are clear. LIVER: Normal in size and contour. No focal lesion. Grossly unremarkable gallbladder. SPLEEN: Normal size. No focal lesion. PANCREAS: No mass, ductal dilation, or noemi-pancreatic fluid. ADRENALS: Normal; no mass. KIDNEYS: Normal size and contour. No hydronephrosis. GASTROINTESTINAL TRACT: No evidence of free air, significant intra-abdominal free fluid, bowel obstru ction or abscess. APPENDIX: Normal appendix. LYMPH NODES: No lymphadenopathy. MUSCULOSKELETAL: No acute or suspicious osseous abnormality. ADDITIONAL FINDINGS: Mild thickening of the urinary bladder wall noted. IUD is in place. IMPRESSION: Mild thickening of the urinary bladder wall suggests cystitis. No additional abnormal finding seen.
--- NOTE | 2024-03-30 15:48 | EDPHYS ---
Physician Documentation [facility] Name: Nayana Chopra Age: 28 yrs Sex: Female : 1995 Arrival Date: 03/30/2024 Time: 12:40 Bed 6 Private MD: SHUN Physician Julien Sibley HPI: 03/30 15:37 This 28 yrs old Female presents to ER via Ambulatory with complaints of Abdominal Pain. cee 15:37 The patient presents with urinary symptoms, dysuria, frequency, hesitancy, urgency. cee Onset: The symptoms/episode began/occurred 2 day(s) ago. Modifying factors: The symptoms are alleviated by nothing, the symptoms are aggravated by nothing. Associated signs and symptoms: The patient has no apparent associated signs or symptoms. Severity of symptoms: At their worst the symptoms were mild, moderate, in the emergency department the symptoms are unchanged. The patient is sexually active, reportedly has a single partner. The patient has experienced similar episodes in the past, a few times. 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 - Infectious Disease History:: Denies. - Social history:: Smoking status: Patient denies any tobacco usage or history of. - Family history:: not pertinent. ROS: 15:37 Constitutional: Negative for fever, chills, and weight loss, Eyes: Negative for injury, cee pain, redness, and discharge, ENT: Negative for injury, pain, and discharge, Neck: Negative for injury, pain, and swelling, Cardiovascular: Negative for chest pain, palpitations, and edema, Respiratory: Negative for shortness of breath, cough, wheezing, and pleuritic chest pain, Back: Negative for injury and pain, MS/Extremity: Negative for injury and deformity, Skin: Negative for injury, rash, and discoloration, Neuro: Negative for headache, weakness, numbness, tingling, and seizure, Psych: Negative for depression, anxiety, suicide ideation, homicidal ideation, and hallucinations, Allergy/Immunology: Negative for hives, rash, and allergies, Endocrine: Negative for neck swelling, polydipsia, polyuria, polyphagia, and marked weight changes, Hematologic/Lymphatic: Negative for swollen nodes, abnormal bleeding, and unusual bruising, 15:37 Abdomen/GI: Positive for abdominal pain, abdominal cramps, of the suprapubic area, right lower quadrant and left lower quadrant, 15:37 : Positive for urinary symptoms, flank pain, urinary frequency, hematuria, burning with urination, difficulty urinating, Exam: 15:37 Constitutional: This is a well developed, well nourished patient who is awake, alert, cee and in no acute distress. Head/Face: Normocephalic, atraumatic. Eyes: Pupils equal round and reactive to light, extra-ocular motions intact. Lids and lashes normal. Conjunctiva and sclera are non-icteric and not injected. Cornea within normal limits. Periorbital areas with no swelling, redness, or edema. ENT: Nares patent. No nasal discharge, no septal abnormalities noted. Tympanic membranes are normal and external auditory canals are clear. Oropharynx with no redness, swelling, or masses, exudates, or evidence of obstruction, uvula midline. Mucous membranes moist. Neck: Trachea midline, no thyromegaly or masses palpated, and no cervical lymphadenopathy. Supple, full range of motion without nuchal rigidity, or vertebral point tenderness. No Meningismus. Chest/axilla: Normal chest wall appearance and motion. Nontender with no deformity. No lesions are appreciated. Cardiovascular: Regular rate and rhythm with a normal S1 and S2. No gallops, murmurs, or rubs. Normal PMI, no JVD. No pulse deficits. Respiratory: Lungs have equal breath sounds bilaterally, clear to auscultation and percussion. No rales, rhonchi or wheezes noted. No increased work of breathing, no retractions or nasal flaring. Back: No spinal tenderness. No costovertebral tenderness. Full range of motion. Skin: Warm, dry with normal turgor. Normal color with no rashes, no lesions, and no evidence of cellulitis. MS/ Extremity: Pulses equal, no cyanosis. Neurovascular intact. Full, normal range of motion., bilateral aka Neuro: Awake and alert, GCS 15, oriented to person, place, time, and situation. Cranial nerves II-XII grossly intact. Motor strength 5/5 in all extremities. Sensory grossly intact. Cerebellar exam normal. Normal gait. Psych: Awake, alert, with orientation to person, place and time. Behavior, mood, and affect are within normal limits. 15:37 Abdomen/GI: Inspection: abdomen appears normal, Bowel sounds: normal, Palpation: mild abdominal tenderness, in the suprapubic area, right lower quadrant and left lower quadrant, Liver: no appreciated palpable abnormalities, Hernia: not appreciated, Vital Signs: 13:10 BP 124 / 81; Pulse 78; Resp 17; Temp 98.3; Pulse Ox 100% ; Weight 99.79 kg; Height 5 aa5 ft. 10 in. ; Pain 8/10; 14:44 BP 104 / 67; Pulse 67; Resp 16 S; Pulse Ox 98% on R/A; aa5 16:16 BP 110 / 71; Pulse 71; Resp 17; Pulse Ox 99% on R/A; rs5 13:10 Body Mass Index 31.57 (99.79 kg, 177.8 cm) aa5 13:10 Pain Scale: Adult aa5 MDM: 12:57 Medical Screening Exam initiated cee 15:41 Differential diagnosis: kidney stone, ovarian cyst, pelvic inflammatory disease, cee uterine fibroids, urinary tract infection, vaginosis. Data reviewed: vital signs, nurses notes, lab test result(s), EKG, radiologic studies, CT scan. Consideration of Admission/Observation Escalation of care including admission/observation considered. I considered the following discharge prescriptions or medication management in the emergency department Medications were administered in the Emergency Department. See MAR. Independent interpretation of the following test(s) in the Emergency Department CT Scan: My interpretation is ct ab/ pelvis. Test considered but Not performed: Ultrasound no abd usg. Historians other than the Patient: pt well informed. Care significantly affected by the following chronic conditions: none. 03/30 12:57 Order name: CBC with Diff; Complete Time: 14:32 [facility] 03/30 12:57 Order name: CMP; Complete Time: 14:32 [facility] 03/30 12:57 Order name: Lipase; Complete Time: 14:32 [facility] 03/30 12:57 Order name: Test, Urine; Complete Time: 14:32 [facility] 03/30 12:57 Order name: Urinalysis w/ reflexes; Complete Time: 14:32 [facility] 03/30 14:05 Order name: Urine Culture [facility] 03/30 14:35 Order name: CT Abd/Pelvis - IV Contrast Only; Complete Time: 15:36 [facility] 03/30 12:57 Order name: IV Saline Lock; Complete Time: 13:39 [facility] 03/30 12:57 Order name: Labs collected and sent; Complete Time: 13:39 cee Administered Medications: 13:40 Drug: Ondansetron IVP 4 mg IVP once; over 2 minutes Route: IVP; Site: right antecubital;aa5 13:45 Follow up: Response: No adverse reaction aa5 13:40 Drug: NS 0.9% IV 1000 ml IV at 1 bolus Per protocol; to be given as a bolus over 60 aa5 minutes Route: IV; Rate: 1 bolus; Site: right antecubital; 14:40 Follow up: IV Status: Completed infusion; IV Intake: 1000ml aa5 15:42 Drug: Rocephin IV 2 grams IV at per protocol once; Given slow IV push per pharmacy rs5 instructions Route: IV; Rate: per protocol; Site: right antecubital; 15:42 Drug: Cefdinir PO 300 mg PO once Route: PO; rs5 15:42 Drug: Ciprofloxacin PO 500 mg PO once Route: PO; rs5 Disposition Summary: 03/30/24 15:47 Discharge Ordered Notes: Location: Home [facility] Problem: new [facility] Symptoms: have improved [facility] Condition: Stable [facility] Diagnosis - Abdominal tenderness cee - Dysuria cee - UTI/ Urinary tract infection, site not specified cee - Acute cystitis with hematuria cee Followup: [facility] - With: Private Physician - When: 2 - 3 days - Reason: Recheck today's complaints, Continuance of care, Re-evaluation by your physician Discharge Instructions: - Discharge Summary Sheet cee - Abdominal Pain, Adult cee - Dysuria cee - Urinary Tract Infection, Adult cee - Urinary Tract Infection, Adult, [id number] cee - Abdominal Pain, Adult, [id number] [facility] Forms: - Medication Reconciliation Form [facility] - Antibiotic Education cee - Prescription Opioid Use [facility] - Patient Portal Instructions [facility] - Leadership Thank You Letter [facility] Prescriptions: - cefdinir 300 mg Oral capsule - take 1 capsule ORAL route 2 times per day for 7 days; 14 capsule; Refills: 0, cee Product Selection Permitted - Cipro 250 mg Oral tablet - take 1 tablet ORAL route every 12 hours; 6 tablet; Refills: 0, Product [facility] Selection Permitted - Pyridium 200 mg Oral Tablet - take 1 tablet ORAL route every 8 hours for 3 days; 9 tablet; Refills: 0, cee Product Selection Permitted Signatures: Dispatcher [employer] EDMS Julien Sibley MD MD cha Calderon, Audri RN RN aa5 Eveline Magaña RN RN ap3 Fernando Harper, RN RN rs5 Corrections: (The following items were deleted from the chart) 12:58 12:58 CBC+H.LAB.BRZ ordered. EDMS EDMS 12:58 12:58 COMPREHENSIVE METABOLIC PANEL+C.LAB.BRZ ordered. EDMS EDMS 12:58 12:58 LIPASE+C.LAB.BRZ ordered. EDMS EDMS 12:58 12:58 Test, Urine+UC.LAB.BRZ ordered. EDMS EDMS 12:58 12:58 Urinalysis+U.LAB.BRZ ordered. EDMS EDMS
--- NOTE | 2024-03-30 15:48 | ER ---
Nurse's Notes [facility] Name: Nayana Chopra Age: 28 yrs Sex: Female : 1995 Arrival Date: 03/30/2024 Time: 12:40 Bed 6 Private MD: Diagnosis: Abdominal tenderness;Dysuria;UTI/ Urinary tract infection, site not specified;Acute cystitis with hematuria Presentation: 03/30 13:10 Chief complaint: Patient states: she has been having burning and frequency with ap3 urination for approx 2 weeks, but now the pain is in her lower back. patient has attempted to self medicate with AZO's and cranberry juice but her symptoms are not improving. Coronavirus screen: At this time, the client does not indicate any symptoms associated with coronavirus-19. Ebola Screen: No symptoms or risks identified at this time. Initial Sepsis Screen: Does the patient meet any 2 criteria? No. Patient's initial sepsis screen is negative. Does the patient have a suspected source of infection? No. Patient's initial sepsis screen is negative. Risk Assessment: Do you want to hurt yourself or someone else? Patient reports no desire to harm self or others. Onset of symptoms is unknown. 13:10 Method Of Arrival: Ambulatory ap3 13:10 Acuity: FLAQUITO 3 ap3 Triage Assessment: 13:12 General: Appears in no apparent distress. Behavior is calm, cooperative, appropriate ap3 for age. Pain: Complains of pain in suprapubic area and pelvis, low back. Neuro: Level of Consciousness is awake, alert, obeys commands, Oriented to person, place, time, situation, Appropriate for age. Cardiovascular: Patient's skin is warm and dry. Respiratory: Airway is patent Respiratory effort is even, unlabored, Respiratory pattern is regular, symmetrical. GI: Reports lower abdominal pain. : Reports burning with urination, urinary frequency. 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 - Infectious Disease History:: Denies. - Social history:: Smoking status: Patient denies any tobacco usage or history of. - Family history:: not pertinent. Screenin:12 [facility] ED Fall Risk Assessment (Adult) History of falling in the last 3 months, ap3 including since admission No falls in past 3 months (0 pts) Confusion or Disorientation No (0 pts) Intoxicated or Sedated No (0 pts) Impaired Gait No (0 pts) Mobility Assist Device Used No (0 pt) Altered Elimination No (0 pt) Score/Fall Risk Level 0 - 2 = Low Risk Oriented to surroundings, Maintained a safe environment, Educated pt \T\ family on fall prevention, incl call for assistance when getting out of bed, Assessed \T\ reinforced patient's understanding of fall precautions, Hourly rounding (assess needs \T\ fall precautionary measures) done, Used ambulatory aids as needed (educated on \T\ assisted with), Used gait belt as appropriate. Abuse screen: Denies threats or abuse. Nutritional screening: No deficits noted. Tuberculosis screening: No symptoms or risk factors identified. Assessment: 13:30 General: Appears comfortable, Behavior is calm, cooperative. Pain: Complains of pain in aa5 left lower quadrant and right lower quadrant and suprapubic area Pain currently is 8 out of 10 on a pain scale. Quality of pain is described as aching, shooting. Neuro: Level of Consciousness is awake, alert, obeys commands, Oriented to person, place, time, situation. Cardiovascular: Patient's skin is warm and dry. Respiratory: Airway is patent Respiratory effort is even, unlabored, Respiratory pattern is regular, symmetrical. GI: Abdomen is round non-distended, Bowel sounds present X 4 quads. Abd is soft and non tender X 4 quads. : Reports burning with urination, urgency, urinary frequency. EENT: No signs and/or symptoms were reported regarding the EENT system. Derm: Skin is pink, warm \T\ dry. Musculoskeletal: Range of motion: intact in all extremities. 14:40 Reassessment: Patient is alert, oriented x 3, equal unlabored respirations, skin aa5 warm/dry/pink. Pt sitting up in bed . 15:51 Reassessment: Patient and/or family updated on plan of care and expected duration. Pain rs5 level reassessed. Patient is alert, oriented x 3, equal unlabored respirations, skin warm/dry/pink. 16:16 Reassessment: Patient and/or family updated on plan of care and expected duration. Pain rs5 level reassessed. Patient is alert, oriented x 3, equal unlabored respirations, skin warm/dry/pink. Vital Signs: 13:10 BP 124 / 81; Pulse 78; Resp 17; Temp 98.3; Pulse Ox 100% ; Weight 99.79 kg; Height 5 aa5 ft. 10 in. ; Pain 8/10; 14:44 BP 104 / 67; Pulse 67; Resp 16 S; Pulse Ox 98% on R/A; aa5 16:16 BP 110 / 71; Pulse 71; Resp 17; Pulse Ox 99% on R/A; rs5 13:10 Body Mass Index 31.57 (99.79 kg, 177.8 cm) aa5 13:10 Pain Scale: Adult aa5 ED Course: 12:43 Patient arrived in ED. ra3 12:56 Julien Sibley MD is Attending Physician. cee 13:11 Triage completed. ap3 13:12 Arm band placed on right wrist. ap3 13:28 Francisca Soto, RN is Primary Nurse. aa5 13:30 Patient has correct armband on for positive identification. Bed in low position. Call aa5 light in reach. Side rails up X 1. Pulse ox on. NIBP on. 13:30 No provider procedures requiring assistance completed. aa5 13:38 Initial lab(s) drawn, by ED staff, sent to lab. Inserted saline lock: 20 gauge in right aa5 antecubital area, using aseptic technique. Blood collected. Flushed with 10 mL NS. 14:59 CT Abd/Pelvis - IV Contrast Only In Process Unspecified. EDMS 16:16 IV discontinued, intact, bleeding controlled, No redness/swelling at site. Pressure rs5 dressing applied. Administered Medications: 13:40 Drug: Ondansetron IVP 4 mg IVP once; over 2 minutes Route: IVP; Site: right antecubital;aa5 13:45 Follow up: Response: No adverse reaction aa5 13:40 Drug: NS 0.9% IV 1000 ml IV at 1 bolus Per protocol; to be given as a bolus over 60 aa5 minutes Route: IV; Rate: 1 bolus; Site: right antecubital; 14:40 Follow up: IV Status: Completed infusion; IV Intake: 1000ml aa5 15:42 Drug: Rocephin IV 2 grams IV at per protocol once; Given slow IV push per pharmacy rs5 instructions Route: IV; Rate: per protocol; Site: right antecubital; 15:42 Drug: Cefdinir PO 300 mg PO once Route: PO; rs5 15:42 Drug: Ciprofloxacin PO 500 mg PO once Route: PO; rs5 Medication: 13:30 VIS not applicable for this client. aa5 Intake: 14:40 IV: 1000ml; Total: 1000ml. aa5 Outcome: 15:47 Discharge ordered by . cee 16:16 Discharged to home ambulatory, rs5 16:16 Condition: stable 16:16 Discharge instructions given to patient, family, Instructed on discharge instructions, follow up and referral plans. medication usage, Demonstrated understanding of instructions, follow-up care, medications, Prescriptions given X 1, 16:17 Patient left the ED. rs5 Signatures: Dispatcher [employer] EDMS Julien Sibley MD MD cha Calderon, Audri, RN RN aa5 Eveline Magaña RN RN ap3 Fernando Harper RN RN rs5 Peggy Funes ra3 Corrections: (The following items were deleted from the chart) 14:46 13:10 BP 124 / 101; Pulse 78bpm; Resp 17bpm; Pulse Ox 100%; Temp 98.3F; 99.79 kg; aa5 Height 5 ft. 10 in.; BMI: 31.5; Pain 8/10, Adult; ap3 18:29 18:01 BP 110 / 71; Pulse 71bpm; Resp 17bpm; Pulse Ox 99% RA; rs5 rs5 18:30 16:16 Discharge instructions given to patient, family, Instructed on discharge rs5 instructions, follow up and referral plans. Demonstrated understanding of instructions, follow-up care, rs5
[2024-03-30 16:50] VITALS: TEMP 98.3
[2024-03-30 16:54] VITALS: BP 104/67; O2SAT 98
== END 2024-03-30 16:17 | disposition home or self-care (01) ==
LOC: ER 12:40
DX: N30.01 Acute cystitis with hematuria (principal); R10.9 Unspecified abdominal pain
CPT/HCPCS: 96361; 87088; 85025; 81001; 87086; 36415; 81025; 83690; 80053; 74177; 96375; 96374; 99284; Q9967; J2405; J0696; J7030

== ENCOUNTER 2024-05-27 16:13 | Emergency (ER) | payer OTHER ==
[2024-05-27] MEDS ORDERED: TETRACAINE HCL 0.5% 4ML OPTH ONE (16:16)
[2024-05-27] MEDS ORDERED: FLUORESCEIN SODIUM 1 MG/WRAP ONE (16:16)
--- OUTSIDE RECORDS SUMMARY | 2024-05-27 16:16 | XMS REPORT | Continuity of Care Document ---
Author Name Unknown Address [address] [facility] [address] [place] [address] [facility] [address] [facility] 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 Name Role Phone PCP, PATIENT DOES NOT HAVE A Primary Care Physic linette Unavailable Medhat Burrows Attending Clinician UnavailVARSHA Griggs Attending Clinician Unavailable EDITA BONILLA Attending Clinician Unavailable Edita Bonilla DO Attending Clinician [phone] MELANI GOVEA Attending Clinician UnavailMELANI Garcia Attending Clinician Unavailarlyn singh Nurse, [facility] Attending Clinician Unavailable Amy Sauceda Attending Clinician [phone] Unknown, Attending Attending Clinician UnavailAMY Pratt Attending Clinician UnavailMiroslava Tee Attending Clinician [phone] MIROSLAVA STATON Attending Clinician Unavailable Doctor Unassigned, [place] Attending Clinician Delphine Gutierrez MD Attending Clinician [phone] KEN LEUNG Attending Clinician Unavailable RICHMOND VAZQUEZ Admitting Clinician UnavailMedhat Melendez Admitting Clinician UnavailDELPHINE Dash Admitting Clinician Unavailabl e Payers Payer Name Policy Type Policy Number Effective Date Expirati on Date Source [employer] MEDICAID [id number] 2020 00:00:00 [employer] [facility] 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 94 ON 9 [id number] 2023 00:00:00 Problems Condition Name Condition Details Condition Category Status Onset Date Resolution Date Last Treatment Date Treating Clinician Comments Source Counseling for control regarding intrauteri ne device (IUD) Counseling for control regarding intrauteri ne device (IUD) Disease Active 12-12 00:00: 00 [facility] Screening for malignant neoplasm of the cervix Screening for malignant neoplasm of the cervix Disease Active 12-12 00:00: 00 [facility] Vaginal lesion Vaginal lesion Disease Active 12-12 00:00: 00 [facility] Generalize d anxiety disorder Generalize d anxiety disorder Disease Active 12-12 00:00: 00 [facility] BMI 30.0-30.9, adult BMI 30.0-30.9, adult Disease Active 12-12 00:00: 00 [facility] General counseling and advice on female contracept ion General counseling and advice on female contracept ion Disease Active 12-12 00:00: 00 [facility] Screening for venereal disease Screening for venereal disease Disease Active 11-17 00:00: 00 [facility] Attention deficit hyperactiv ity disorder (ADHD) Attention deficit hyperactiv ity disorder (ADHD) Disease Active 06-07 00:00: 00 Overview: Formattin g of this note might be different from the original. ICD10 Diagnosis Term Accounts Receivable Analyst Utility [facility] Psychosis Psychosis Disease Active 06-07 00:00: 00 Overview: Formattin g of this note might be different from the original. ICD10 Diagnosis Term Accounts Receivable Analyst Utility [facility] Allergies, Adverse Reactions, Alerts Allergy Name Allergy Type Status Severity Reaction(s) Onset Date Inactive Date Treating Clinician Comments Source No Known Allergie s DA Active U 2019-04 00:00: 00 [facility] No Known Allergie s DA Active U 2019-04 00:00: 00 [facility] NO KNOWN ALLERGIE S Drug Class Active [facility] Social History Social Habit Start Date Stop Date Quantity Comments Source [facility] SDOH Alcohol Frequency [facility] History SDOH Alcohol Std Drinks [facility] History SDOH Alcohol Binge [facility] History of tobacco use Passive smoker [facility] Alcohol intake 2022-06-04 00:00:00 2022-06-04 00:00:00 Current drinker of alcohol (finding) [facility] History of Social function 2022-06-04 00:00:00 2022-06-04 00:00:00 [facility] Exposure to SARS-CoV-2 (event) 2022-05-24 00:00:00 2022-06-03 12:41:00 Not sure [facility] Tobacco use and exposure 2021-12-12 00:00:00 2021-12-12 00:00:00 Smokeless tobacco non-user [facility] Alcohol Comment 2016-11-17 00:00:00 2016-11-17 00:00:00 not often, only social occassions [facility] Sex Assigned At 1995 00:00:00 1995 00:00:00 [facility] Smoking Status Start Date Stop Date Source Never smoked tobacco [facility] Medications Ordered Medication Name Filled Medication Name Start Date Stop Date Current Medication? Ordering Clinician Indication Dosage Frequency Signature (SIG) Comments Components Source hydrOXYzine 10 mg tablet 1-24 00:00: 00 Yes [id number] 10mg Take 1 tablet by mouth every 6 (six) hours. [facility] levonorgest reL (MIRENA) IUD 1 Device 06-04 20:30: 00 06-04 19:39 :00 No [id number] 1{devic e} [facility] miSOPROStoL 200 mcg tablet 2-15 00:00: 00 06-04 00:00 :00 No Take one tablet the night before IUD insertion procedure and take one tablet the morning of the IUD insertion procedure. This is not for abortive treatment; patient will have IUD insertion. [facility] oseltamivir (TAMIFLU) 75 mg capsule 2021-04 00:00: 00 03-19 05:59 :00 No [id number] 75mg Take 1 capsule by mouth in the morning and 1 capsule in the evening. Take with meals. Do all this for 5 days. [facility] cephALEXin (KEFLEX) 500 mg capsule 12-25 00:00: 00 01-05 04:59 :00 No [id number] 500mg Take 1 capsule by mouth 4 (four) times daily for 10 days. [facility] buPROPion SR (WELLBUTRIN SR) 100 mg SR tablet 12-12 00:00: 00 Yes [id number] 100mg Take 1 tablet by mouth in the morning and 1 tablet in the evening. [facility] Immunizations Ordered Immunization Name Filled Immunization Name Date Status Comments Source [facility] 2016-11-17 00:00:00 Completed [facility] 2016-11-17 00:00:00 Completed [facility] 2016-11-17 00:00:00 Completed [facility] 2016-11-17 00:00:00 Completed [facility] 2016-11-17 00:00:00 Completed [facility] 2016-11-17 00:00:00 Completed [facility] 2016-11-17 00:00:00 Completed [facility] 2016-11-17 00:00:00 Completed [facility] Unknown Completed [facility] Vital Signs Vital Name Observation Time Observation Value Comments S coby Systolic blood pressure 2023-05-12 17:00:00 111 [facility] Diastolic blood pressure 2023-05-12 17:00:00 77 mm[Hg[facility] Heart rate 2023-05-12 17:00:00 71 /min [facility] Respiratory rate 2023-05-12 17:00:00 16 /min [facility] Oxygen saturation in Arterial blood by Pulse oximetry 2023-05-12 17:00:00 99 /min [facility] Body temperature 2023-05-12 15:15:00 36.83 [facility] Body height 2023-05-12 15:15:00 177.8 cm [facility] Body weight 2023-05-12 15:15:00 102.059 kg [facility] BMI 2023-05-12 15:15:00 32.28 kg/m2 Univ [facility] Systolic blood pressure 2022-06-04 19:05:00 114 mm[Hg[facility] Diastolic blood pressure 2022-06-04 19:05:00 81 mm[Hg[facility] Heart rate 2022-06-04 19:05:00 70 /min [facility] Body temperature 2022-06-04 19:05:00 36.94 [facility] Respiratory rate 2022-06-04 19:05:00 16 /min [facility] Body height 2022-06-04 19:05:00 177.8 cm [facility] Body weight 2022-06-04 19:05:00 97.523 kg [facility] BMI 2022-06-04 19:05:00 30.85 kg/m2 [facility] Oxygen saturation in Arterial blood by Pulse oximetry 2022-06-04 19:05:00 98 /min [facility] Systolic blood pressure 2022-06-03 19:03:00 114 mm[Hg[facility] Diastolic blood pressure 2022-06-03 19:03:00 79 mm[Hg[facility] Heart rate 2022-06-03 19:03:00 79 /min [facility] Body temperature 2022-06-03 19:03:00 36.83 [facility] Respiratory rate 2022-06-03 19:03:00 16 /min [facility] Body height 2022-06-03 19:03:[address] [facility] Body weight 2022-06-03 19:03:00 97.977 kg [facility] BMI 2022-06-03 19:03:00 30.99 kg/m2 [facility] Oxygen saturation in Arterial blood by Pulse oximetry 2022-06-03 19:03:00 98 /min [facility] Systolic blood pressure 2022-05-21 20:05:00 111 mm[Hg[facility] Diastolic blood pressure 2022-05-21 20:05:00 76 mm[Hg[facility] Heart rate 2022-05-21 20:05:00 74 /min [facility] Body temperature 2022-05-21 20:05:00 36.72 [facility] Respiratory rate 2022-05-21 20:05:00 18 /min [facility] Body height 2022-05-21 20:05:00 177.8 cm [facility] Body weight 2022-05-21 20:05:00 95.709 kg [facility] BMI 2022-05-21 20:05:00 30.28 kg/m2 [facility] Systolic blood pressure 2022-03-13 18:27:00 115 mm[Hg[facility] Diastolic blood pressure 2022-03-13 18:27:00 80 mm[Hg[facility] Heart rate 2022-03-13 18:27:00 97 /min [facility] Body temperature 2022-03-13 18:27:00 37.28 [facility] Respiratory rate 2022-03-13 18:27:00 16 /min [facility] Body height 2022-03-13 18:27:00 177.8 cm [facility] Body weight 2022-03-13 18:27:00 91.491 kg [facility] BMI 2022-03-13 18:27:00 28.94 kg/m2 [facility] Oxygen saturation in Arterial blood by Pulse oximetry 2022-03-13 18:27:00 98 /min [facility] Systolic blood pressure 2021-12-25 23:24:00 118 mm[Hg[facility] Diastolic blood pressure 2021-12-25 23:24:00 81 mm[Hg[facility] Heart rate 2021-12-25 23:24:00 70 /min [facility] Body temperature 2021-12-25 23:24:00 37.11 [facility] Respiratory rate 2021-12-25 23:24:00 16 /min [facility] Body height 2021-12-25 23:24:00 177.8 cm [facility] Body weight 2021-12-25 23:24:00 89.359 kg [facility] BMI 2021-12-25 23:24:00 28.27 kg/m2 [facility] Oxygen saturation in Arterial blood by Pulse oximetry 2021-12-25 23:24:00 97 /min [facility] Systolic blood pressure 2021-12-12 20:30:00 120 mm[Hg[facility] Diastolic blood pressure 2021-12-12 20:30:00 85 mm[Hg[facility] Heart rate 2021-12-12 20:30:00 67 /min [facility] Body temperature 2021-12-12 20:30:00 36.72 [facility] Respiratory rate 2021-12-12 20:30:00 18 /min [facility] Body height 2021-12-12 20:30:00 177.8 cm [facility] Body weight 2021-12-12 20:30:00 96.163 kg [facility] BMI 2021-12-12 20:30:00 30.42 kg/m2 [facility] Procedures Procedure Date / Time Performed Performing Clinicia n Source RAPID INFLUENZA A/B 2023-05-12 16:29:00 Chana Bonilla [facility] LACTIC ACID WHOLE BLOOD 2023-05-12 16:29:00 Singer Edita [facility] COVID-19 (ID NOW RAPID TESTING) 2023-05-12 16:29:00 Edita Bonilla [facility] COMP. METABOLIC PANEL ([id number]) 2023-05-12 16:28:00 Edita Bonilla [facility] CBC WITH DIFF 2023-05-12 16:28:[address] [facility] POCT TEST 2022-06-03 00:00:00 Gary Govea [facility] POCT MOLECULAR FLU 2022-03-13 18:33:00 Unknown, Attend ing [facility] [id number] 2020-01-19 [id number] 2020-01-19 00:00:00 [facility] [id number] 2020-01-19 00:00:00 [facility] Encounters Start Date/Time End Date/Time Encounter Type Admission Type Attending [facility] Care Department Encounter ID Source 2021-10-31 20:02:35 Emergency X [facility] OPH [id number] [facility] 2020-01-19 09:31:00 Inpatient Medhat Burrows [facility] [id number] [facility] 2024-01-04 16:30:00 2024-01-04 16:30:00 Outpatient VARSHA RODGERS [id number] Maria Fernanda [facility] 2023-12-26 10:40:00 2023-12-26 10:40:00 Outpatient R [facility] [id number] [facility] 2023-11-25 16:30:00 2023-11-25 16:30:00 Outpatient VARSHA RODGERS [id number] Maria Fernanda [facility] 2023-09-17 16:30:00 2023-09-17 16:30:00 Outpatient VARSHA RODGERS [id number] Maria Fernanda [facility] 2023-06-22 13:30:00 2023-06-22 13:30:00 Outpatient VARSHA RODGERS [id number] Maria Fernanda [facility] 2023-05-12 09:11:00 2023-05-12 11:38:00 Emergency X EDITA BONILLA MD ERT [id number] [facility] 2023-05-12 09:11:00 2023-05-12 11:38:00 Emergency Edita Bonilla [facility] 1.20.114 350.1.13.10 4.2.7.2.686 [id number] [facility] 2022-12-16 14:30:00 2022-12-16 14:30:00 Outpatient R MELANI GOVEA CHERYAL [facility] [id number] [facility] 2022-11-26 13:30:00 2022-11-26 13:30:00 Outpatient R MELANI GOVEA [facility] [id number] [facility] 2022-09-07 13:00:00 2022-09-07 13:00:00 Outpatient R MELANI GOVEA [facility] [id number] [facility] 2022-08-27 13:00:00 2022-08-27 13:00:00 Outpatient R MELANI GOVEA [facility] [id number] [facility] 2022-06-04 13:00:00 2022-06-04 13:18:50 Outpatient R MELANI GOVEA MELANI [facility] [id number] [facility] 2022-06-04 13:00:00 2022-06-04 13:18:50 [facility]114 350.1.13.10 4.2.7.2.686 [id number] [facility] 2022-06-03 13:00:00 2022-06-03 13:15:00 [facility] 1.0.114 350.1.13.10 4.2.7.2.686 [id number] [facility] 2022-06-03 13:00:00 2022-06-03 13:00:00 Outpatient R MELANI GOVEA CHERYAL [facility] [id number] [facility] 2022-05-21 14:00:00 2022-05-21 14:30:00 Office Visit YossiMelani caceres [facility] 1.840.114 350.1.13.10 4.2.7.2.686 [id number] [facility] 2022-05-21 14:00:00 2022-05-21 14:00:00 Outpatient R MELANI GOVEA CHERYAL [facility] [id number] [facility] 2022-05-18 00:00:00 2022-05-18 00:00:00 Refill Xuan [facility] 1.840.114 350.1.13.10 4.2.7.2.686 [id number] [facility] 2022-03-13 12:20:00 2022-03-13 12:40:00 Urgent Care Amy Silveira Unknown, Attending [facility] 1..840.114 350.1.13.10 4.2.7.2.686 [id number] [facility] 2022-03-13 12:20:00 2022-03-13 12:20:00 Outpatient R AMY SILVEIRA [facility] [id number] [facility] 2022-03-13 00:00:00 2022-03-13 00:00:00 Letter (Out) Amy Silveira [facility] 1..840.114 350.1.13.10 4.2.7.2.686 [id number] [facility] 2022-01-13 15:30:00 2022-01-13 15:30:00 Outpatient R RUFINAMELANI SPRING YOSSIMARCELFARHANMELANI SPRING [facility] [id number] [facility] 2022-01-09 14:00:00 2022-01-09 14:00:00 Outpatient R XUANMELANI XUAN MELANI [facility] [id number] [facility] 2021-12-25 18:20:00 2021-12-25 18:40:00 Urgent Care Miroslava Staton Unknown, Attending [facility] 1..114 350.1.13.10 4.2.7.2.686 [id number] [facility] 2021-12-25 18:20:00 2021-12-25 18:20:00 Outpatient R MIROSLAVA STATON [facility] [id number] [facility] 2021-12-12 15:00:00 2021-12-12 15:51:00 Outpatient R RUFINAMELANI SPRING MEALNI [facility] [id number] [facility] 2021-12-12 15:00:00 2021-12-12 15:51:00 Outpatient R XUANMELANI XUAN MELANI [facility] [id number] [facility] 2021-12-12 15:00:00 2021-12-12 15:51:00 Office Visit Melani Govea [facility] 1..114 350.1.13.10 4.2.7.2.686 [id number] [facility] 2021-12-12 00:00:00 2021-12-12 00:00:00 Orders Only Doctor Unassigned, Hubbard [facility] 1..114 350.1.13.10 4.2.7.2.686 [id number] [facility] 2021-12-08 14:15:00 2021-12-08 14:15:00 Outpatient R MELANI GOVEA YOSSIMARCELFARHANMELANI SPRING [facility] [id number] [facility] 2021-10-31 17:10:00 2021-10-31 21:10:00 Emergency X SINGER EDITA [facility] ERT [id number] [facility] 2021-10-31 17:10:00 2021-10-31 21:10:00 Emergency Delphine Kingston Singer [facility] 1.2.840.114 350.1.13.10 4.2.7.2.686 [id number] [facility] 2020-11-28 14:20:00 2020-11-28 14:20:00 Outpatient KEN LUNSFORD [facility] [id number] [facility] Results Test Description Test Time Test Comments Results Result Co mments Source [facility] with [id number] 16:52:21* Test Item Value Reference Range Interpretation Comme nts WBC (test code = 6690-2) 9.27 See_Comment [Automated [employer]] The system which generated this result transmitted reference range: 4.30 - 11.10 10*3/?L. The reference range was not used to interpret this result as normal/abnormal. RBC (test code = 789-8) 4.10 See_Comment [Automated [employer] [facility]] The system which generated this result transmitted [...] 33.6 g/dL 31.6-35.1 RDW-SD (test code = 47880-6) 41.1 fL 39.0-49.9 RDW-CV (test code = 788-0) 12.2 % 12.0-15.5 PLT (test code = 777-3) 267 See_Comment [Automated messa ge] The system which generated this result transmitted reference range: 166 - 358 10*3/?L. The reference range was not used to interpret this result as normal/abnormal. MPV (test code = 68736-6) 10.1 fL 9.5-12.9 NRBC/100 WBC (test code = 5922765836) 0.0 See_Comment [Automated me ssage] The system which generated this result transmitted reference range: 0.0 - 10.0 /100 WBCs. The reference range was not used to interpret this result as normal/abnormal. NRBC x10^3 (test code = 9109139406) See_Comment [Automated me ssage] The system which generated this result transmitted reference range: 10*3/?L. The reference range was not used to interpret this result as normal/abnormal. GRAN MAT (NEUT) % (test code = 770-8) 64.7 % IMM GRAN % (test code = 1526325371) 0.30 % LYMPH % (test code = 736-9) 23.0 % MONO % (test code = 5905-5) 7.2 % EOS % (test code = 713-8) 4.0 % BASO % (test code = 706-2) 0.8 % GRAN MAT x10^3(ANC) (test code = 9125876375) 6.00 10*3/uL 1.88-7.09 IMM GRAN x10^3 (test code = 6602576125) 0.03 10*3/uL 0.00-0.06 LYMPH x10^3 (test code = 731-0) 2.13 10*3/uL 1.32-3.29 MONO x10^3 (test code = 742-7) 0.67 10*3/uL 0.33-0.92 EOS x10^3 (test code = 711-2) 0.37 10*3/uL 0.03-0.39 BASO x10^3 (test code = 704-7) 0.07 10*3/uL 0.01-0.07 [facility] [id number] 16:35:43* Test Item Value Reference Range Interpretation Comme nts LACTIC ACID (test code = 5079379112) 0.68 mmol/L 0.50-2.20 Lab Interpretation (test cod e = 86854-6) Normal [facility] [id number] 19:07:00* Test Item Value Reference Range Interpretation Comme nts POCT PREG (test code = 1605) Negative On board controls acceptable with C Line (test code = 3574) Yes POCT PREG LOT # (test code = 3575) POCT PREG TEST DATE ( test code = 3576) [facility] MOLECULAR [id number] 18:37:34* Test Item Value Reference Range Interpretation Comme nts POCT Molecular FluA (test co de = 24040-2) Positive Negative A Lab Interpretation (test cod e = 46574-5) [facility]normal [facility] [id number] 13:15:00* Test Item Value Reference Range Interpretation Comme nts HEMOGLOBIN (test code = HGB) 11.4 g/dL 10.7-13.9 N HEMATOCRIT (test code = HCT) 34.5 % 32.1-42.1 N AG HEPATITIS B [id number] 14:34:00* Test Item Value Reference Range Interpretation Comme nts AG HEPATITIS B SURFACE (test code = HBSAG) NONREACTIVE NONREACTIVE IS CONSENT FORM SIGNED FOR HIV TESTING? YAB HEPATITIS C [id number] 14:34:00* Test Item Value Reference Range Interpretation Comme nts AB HEPATITIS C (test code = HCVAB) NONREACTIVE NONREACTIVE SIGNAL TO CUTOFF (test code = CUTOFF) 0.16 <0.80 N IS CONSENT FORM SIGNED FOR HIV TESTING? YAB [id number] 14:34:00* Test Item Value Reference Range Interpretation Comme nts AB TREPONEMA (test code = TREPAB) NONREACTIVE NONREACTIVE IS CONSENT FORM SIGNED FOR HIV TESTING? YAB HIV 1 14:34:00* Test Item Value Reference Range Interpretation Comme nts AB HIV 1 2 (test code = BPV14AO) NONREACTIVE IS CONSENT FORM SIGNED FOR HIV TESTING? YAG HEPATITIS B [id number] 14:34:00* Test Item Value Reference Range Interpretation Comme nts AG HEPATITIS B SURFACE (test code = HBSAG) NONREACTIVE NONREACTIVE IS CONSENT FORM SIGNED FOR HIV TESTING? YAB HEPATITIS C [id number] 14:34:00* Test Item Value Reference Range Interpretation Comme nts AB HEPATITIS C (test code = HCVAB) NONREACTIVE NONREACTIVE SIGNAL TO CUTOFF (test code = CUTOFF) 0.16 <0.80 N IS CONSENT FORM SIGNED FOR HIV TESTING? YAB [id number] 14:34:00* Test Item Value Reference Range Interpretation Comme nts AB TREPONEMA (test code = TREPAB) NONREACTIVE NONREACTIVE IS CONSENT FORM SIGNED FOR HIV TESTING? YAB HIV 1 14:34:00* Test Item Value Reference Range Interpretation Comme nts AB HIV 1 2 (test code = TXK85OI) NONREACTIVE NONREACTIVE Done by [employer] HIV Ag/Ab Combo Screen IS CONSENT FORM SIGNED FOR HIV TESTING? YAG HEPATITIS B [id number] 14:11:00* Test Item Value Reference Range Interpretation Comme nts AG HEPATITIS B SURFACE (test code = HBSAG) NONREACTIVE NONREACTIVE IS CONSENT FORM SIGNED FOR HIV TESTING? YAB HEPATITIS C [id number] 14:11:00* Test Item Value Reference Range Interpretation Comme nts AB HEPATITIS C (test code = HCVAB) NONREACTIVE SIGNAL TO CUTOFF (test code = CUTOFF) <0.80 IS CONSENT FORM SIGNED FOR HIV TESTING? YAB [id number] 14:11:00* Test Item Value Reference Range Interpretation Comme nts AB TREPONEMA (test code = TREPAB) NONREACTIVE NONREACTIVE IS CONSENT FORM SIGNED FOR HIV TESTING? YAB HIV 1 14:11:00* Test Item Value Reference Range Interpretation Comme nts AB HIV 1 2 (test code = ARB33VR) NONREACTIVE IS CONSENT FORM SIGNED FOR HIV TESTING? YCBC W/AUTO [id number] 13:58:00* Test Item Value Reference Range Interpretation [...] PLTMR) NORMAL NORMAL COVID 19 Asymptomatic IH [id number] 13:08:00* Test Item Value Reference Range Interpretation [...] testsfor detection and/or diagnosis of COVID-19 under Itpsaxr195(b)(1) of the Act, 21 U.S.C. 360bbb-3(b)(1), unless theauthorization is terminated or revoked sooner.
--- NOTE | 2024-05-27 16:51 | ER ---
Nurse's Notes [facility] Name: Nayana Chopra Age: 28 yrs Sex: Female : 1995 Arrival Date: 05/27/2024 Time: 16:13 Bed 16 Private MD: Diagnosis: Injury of conjunctiva and corneal abrasion without foreign body, left eye;Injury of conjunctiva and corneal abrasion without foreign body, right eye Presentation: 05/27 16:22 Ebola Screen: No symptoms or risks identified at this time. Initial Sepsis Screen: Does ph the patient meet any 2 criteria? No. Patient's initial sepsis screen is negative. Does the patient have a suspected source of infection? No. Patient's initial sepsis screen is negative. Risk Assessment: Do you want to hurt yourself or someone else? Patient reports no desire to harm self or others. Onset of symptoms was May 27, 2024. 16:23 Chief complaint: Possible piece of tablet glass in right eye 2 hours ago, c/o burning hb pain 4/10 in right eye. Coronavirus screen: At this time, the client does not indicate any symptoms associated with coronavirus-19. 16:23 Method Of Arrival: Ambulatory hb 16:23 Acuity: FLAQUITO 4 hb Historical: - Allergies: 16:22 No Known Drug Allergies; ph - Immunization history:: Adult Immunizations unknown. - Infectious Disease History:: Denies. - Social history:: Smoking status: unknown. Screenin:23 [facility] ED Fall Risk Assessment (Adult) History of falling in the last 3 months, ph including since admission No falls in past 3 months (0 pts) Confusion or Disorientation No (0 pts) Intoxicated or Sedated No (0 pts) Impaired Gait No (0 pts) Mobility Assist Device Used No (0 pt) Altered Elimination No (0 pt) Score/Fall Risk Level 0 - 2 = Low Risk Oriented to surroundings, Maintained a safe environment, Hourly rounding (assess needs \T\ fall precautionary measures) done. Abuse screen: Denies threats or abuse. Denies injuries from another. Nutritional screening: No deficits noted. Tuberculosis screening: No symptoms or risk factors identified. Assessment: 16:41 General: Appears in no apparent distress. Behavior is calm, cooperative. Pain: ph Complains of pain in right eye. Neuro: Level of Consciousness is awake, alert, obeys commands, Oriented to person, place, time, situation. Cardiovascular: Capillary refill < 3 seconds in bilateral fingers Patient's skin is warm and dry. Respiratory: Airway is patent Respiratory effort is even, unlabored, Respiratory pattern is regular, symmetrical. Derm: Skin is pink, warm \T\ dry. Vital Signs: 16:23 BP 125 / 82; Pulse 68; Resp 16; Temp 97.5; Pulse Ox 100% on R/A; Weight 99.79 kg; hb Height 5 ft. 10 in. ; Pain 4/10; 16:23 Body Mass Index 31.57 (99.79 kg, 177.8 cm) hb 16:23 Pain Scale: Adult hb ED Course: 16:15 Patient arrived in ED. mr 16:15 Jon Mccall MD is Attending Physician. ec2 16:19 Keri Mishra RN is Primary Nurse. ph 16:23 Arm band placed on Patient placed in an exam room, on a stretcher. ph 16:23 Patient has correct armband on for positive identification. Bed in low position. Call ph light in reach. Side rails up X 1. Pulse ox on. NIBP on. Door closed. Noise minimized. 16:24 Triage completed. hb 16:41 Assist provider with eye exam of right eye. using fluorescein stain, Performed by Jon Mccall MD Patient tolerated well. 16:50 Sumeet Lew MD is Referral Physician. ec2 Administered Medications: 16:41 Drug: Tetracaine Ophthalmic Drops 0.5 % 1 drops Ophthalmic once Route: Ophthalmic; ph Site: right eye; 17:09 Not Given (Other Intervention Used): erythromycinointment 1 application Ophthalmic once ph Medication: 16:23 VIS not applicable for this client. ph Outcome: 16:50 Discharge ordered by . ec2 17:09 Patient left the ED. ph Signatures: Amy Bailey, Reg Reg mr Keri Mishra, RN RN ph Essence Barrow RN RN oJn Mccall MD MD ec2
--- NOTE | 2024-05-27 16:51 | EDPHYS ---
Physician Documentation [facility] Name: Nayana Chopra Age: 28 yrs Sex: Female : 1995 Arrival Date: 05/27/2024 Time: 16:13 Bed 16 Private MD: ED Physician Jon Mccall HPI: 05/27 16:57 This 28 yrs old Female presents to ER via Ambulatory with complaints of ec2 Foreign Body In Eye. 16:57 Patient arrives today with concern for foreign body in the right eye. Reports that she ec2 was using a broken tablet and felt that she had a shard of the glass break off into the right eye. Complaining of irritation after she irrigated it. No other concerns, does not wear contact lenses. No medical problems. No medications daily.. Historical: - Allergies: 16:22 No Known Drug Allergies; ph - Immunization history:: Adult Immunizations unknown. - Infectious Disease History:: Denies. - Social history:: Smoking status: unknown. ROS: 16:58 Constitutional: as per hpi ec2 Exam: 16:58 Constitutional: GEN: NAD Head: atraumatic Eyes: EOMI, corneal stain of the bilateral ec2 eyes without retained foreign body, questionable defect in the right eye, on the 3 o'clock position medial to the iris Ears: External ears are normal. CV: regular rate LUNGS: no respiratory distress, ABD: non-distended SKIN: no evidence of rashes MSK: no evidence of trauma Vital Signs: 16:23 BP 125 / 82; Pulse 68; Resp 16; Temp 97.5; Pulse Ox 100% on R/A; Weight 99.79 kg; hb Height 5 ft. 10 in. ; Pain 4/10; 16:23 Body Mass Index 31.57 (99.79 kg, 177.8 cm) hb 16:23 Pain Scale: Adult hb MDM: 16:21 Medical Screening Exam initiated ec2 17:00 Data reviewed: vital signs, nurses notes. ED course: Patient arrives today for concern ec2 for foreign body. Examination yields eye findings as above. Corneal stain as above. Will prescribe the patient erythromycin ointment. Possible abrasion. Doubt open globe given lack of teardrop appearance, intact range of motion. Will discharge home. Return precautions given. Will have the patient follow-up with Optho. 05/27 16:15 Order name: Eye Tray; Complete Time: 16:22 ec2 05/27 16:15 Order name: Fluoresene Opth strip; Complete Time: 16:22 ec2 Administered Medications: 16:41 Drug: Tetracaine Ophthalmic Drops 0.5 % 1 drops Ophthalmic once Route: Ophthalmic; ph Site: right eye; 17:09 Not Given (Other Intervention Used): erythromycinointment 1 application Ophthalmic once ph Disposition Summary: 05/27/24 16:50 Discharge Ordered Notes: Location: Home ec2 Condition: Stable ec2 Diagnosis - Injury of conjunctiva and corneal abrasion without foreign body, left eye ec2 - Injury of conjunctiva and corneal abrasion without foreign body, right eye ec2 Followup: ec2 - With: Sumeet Lew MD - When: - Reason: Recheck today's complaints Discharge Instructions: - Discharge Summary Sheet ec2 - Corneal Abrasion, [id number] ec2 Forms: - Medication Reconciliation Form ec2 - Antibiotic Education ec2 - Prescription Opioid Use ec2 - Patient Portal Instructions ec2 - Leadership Thank You Letter ec2 Prescriptions: - Erythromycin 5 mg/gram (0.5 %) Ophthalmic ointment - apply 1 centimeter OPHTHALMIC route 2-3 times daily for 7 days; 5 gram tube; ec2 Refills: 0, Product Selection Permitted Signatures: Keri Mishra RN RN Jon Mccall MD MD ec2
[2024-05-27 17:14] VITALS: BP 125/82; TEMP 97.5; O2SAT 100
== END 2024-05-27 17:09 | disposition home or self-care (01) ==
LOC: ER 16:13
DX: S05.02XA Injury of conjunctiva and corneal abrasion without foreign body, left eye, initial encounter (principal); S05.01XA Injury of conjunctiva and corneal abrasion without foreign body, right eye, initial encounter
CPT/HCPCS: 99283